=== PATIENT | female | born 2000 | race Caucasian/White ===

== ENCOUNTER 2020-05-25 13:08 | Emergency (ER) | payer OTHER, SELFPAY ==
--- NOTE | 2020-05-25 13:24 | ED.URI ---
HPI - URI/Sore Throat General Chief Complaint: Upper Respiratory Infection Stated Complaint: Fever,Cough,sore Throat Time Seen by Provider: 05/25/20 13:24 Source: patient and RN notes reviewed Mode of arrival: ambulatory Limitations: no limitations History of Present Illness HPI Narrative: 20-year-old female presents to the [facility] with complaints of sinus pressure, sore throat, congestion, cough and fever that has improved however is lingering for the last 4 days. States I really need to be tested for COVID. Reports that I think I lost my case this morning Denies fevers, chest pain, shortness of breath. No cough. Related Data Home Medications Medication Instructions Recorded Confirmed No Home Medications 05/25/20 05/25/20 Allergies Allergy/AdvReac Type Severity Reaction Status Date / Time No Known Allergies Allergy Verified 05/25/20 13:21 Review of Systems Review of Systems: Narrative: CONSTITUTIONAL: Denies fever, chills, or sweats. EYES: Denies visual changes, redness, or discharge. ENT: Reports rhinorrhea, congestion, sore throat, or otalgia. CARDIOVASCULAR: Denies chest pain, palpitations, or edema. RESPIRATORY: Denies cough or dyspnea. GASTROINTESTINAL: Denies abdominal pain, nausea, vomiting, or diarrhea. GENITOURINARY: Denies dysuria or hematuria. SKIN: Denies rash or itching. MUSCULOSKELETAL: Denies back pain, joint pain, or myalgia. NEUROLOGIC: Denies headache, numbness, or weakness. PSYCHIATRIC: Denies anxiety or depression. All other systems reviewed are negative, except as documented in HPI. PMFSH Comments At the time of my signature, I reviewed and agree with the nursing past medical, surgical, social, and family history. There is no relevant family history pertinent to the patient complaint. Exam Narrative: Exam Narrative: GENERAL: This is a well-nourished, well-developed patient, in no apparent distress. Obese HEAD: normocephalic, atraumatic. EYES: PERRL. Sclera clear/white. Vision is grossly intact. EARS: External ears normal, auditory canals clear and without drainage, TMs normal without perforation. Hearing grossly intact. NOSE: External nose normal with no obvious nasal discharge, nares without redness, no rhinorrhea. THROAT: Mucous membranes moist, posterior pharynx clear. NECK: Neck supple, non-tender without lymphadenopathy, masses or thyromegaly. CARDIOVASCULAR: Regular rate and rhythm without murmurs, gallops, or rubs. RESPIRATORY: Clear to auscultation. Breath sounds equal bilaterally. No wheezes, rales, or rhonchi. NEURO: awake, alert, and oriented to person, place and time. There were no obvious focal neurologic abnormalities. EXTREMITIES: No joint tenderness, effusion, or edema noted. No calf tenderness. Negative Homans sign bilaterally. BACK: Nontender without deformity. Course Vital Signs Vital signs: Vital Signs Temperature 97.5 F L 05/25/20 13:30 Pulse Rate 74 05/25/20 13:30 Respiratory Rate 18 05/25/20 13:30 Blood Pressure 137/81 05/25/20 13:30 Pulse Oximetry 96 05/25/20 13:30 Temperature 97.5 F L 05/25/20 13:30 Pulse Rate 74 05/25/20 13:30 Respiratory Rate 18 05/25/20 13:30 Blood Pressure 137/81 05/25/20 13:30 Pulse Oximetry 96 05/25/20 13:30 Reviewed MDM - URI/Sore Throat MDM Narrative Medical decision making narrative: Discharge instructions reviewed with patient, as well as provided in writing per nursing staff. The instructions also include specific and strict return/GO TO THE ER as well as f/u information. All questions have been answered, and the patient deny any further questions with discharge and discharge plan. Differential Diagnosis Differential diagnosis: Likely upper respiratory infection, sinusitis, viral infection, bronchitis and other (COVID-19) Lab Data Labs: Lab Results 05/25/20 Range/Units 13:40 SARS-CoV-2 RNA (RT-PCR) Pending Reviewed, patient only having symptoms x3 days sent to PCR waiting
[2020-05-25 13:30] VITALS: BP 137/81; PULSE 74; RESP 18; TEMP 36.4; O2SAT 96
[2020-05-26 13:22] LABS: SARS-CoV-2 RNA PCR Negative
== END 2020-05-25 13:41 | disposition home or self-care (01) ==
PROVIDERS: Emergency Provider Nurse Practitioner
DX: B34.9 Viral infection, unspecified (principal); J06.9 Acute upper respiratory infection, unspecified; Z20.822 Contact with and (suspected) exposure to COVID-19
CPT/HCPCS: 99203; C9803; G0463; U0003; U0005

== ENCOUNTER 2022-01-25 13:55 | Outpatient (CLI) | payer OTHER, SELFPAY ==
[2022-01-25 18:49] LABS: Basophils Percent Auto 0.6 % (0.2-1.2); Eosinophils Absolute Auto 0.1 K/mm3 (0-0.3); Eosinophils Percent Auto 0.7 % (0-4.4); Hematocrit 41.2 % (37.0-47.0); Hemoglobin 12.7 g/dL (12.0-15.0); Immature Granulocyte Absolute 0.01 K/mm3 (0.00-0.031); Immature Granulocyte Percent A 0.1 % (0-0.5); Lymphocytes Absolute Auto 2.61 K/mm3 (0.9-3.2); Lymphocytes Percent Auto 36.4 % (18.3-44.2); Mean Corpuscular HGB Conc 30.8 g/dl (32-36); Mean Corpuscular Hemoglobin 27.2 pg (26-34); Mean Corpuscular Volume 88.2 fl (80-100); Monocytes Absolute Auto 0.6 K/mm3 (0.1-0.6); Monocytes Percent Auto 8.4 % (2.6-8.5); Neutrophils Absolute Auto 3.9 K/mm3 (1.3-6.7); Neutrophils Percent Auto 53.8 % (45.5-73.1); Platelet Count Result 232 k/mm3 (150-375); Red Blood Count 4.67 M/mm3 (4.2-5.4); Red Cell Distribution Width 17.1 % (11.5-14.5); White Blood Count 7.2 K/mm3 (4.5-10.0)
[2022-01-25 18:51] LABS: Alanine Aminotransferase 24 U/L (6-35); Albumin Level 4.1 g/dL (3.5-5.1); Alkaline Phosphatase 71 U/L (38-126); Anion Gap 8 mmol/L (8-16); Aspartate Amino Transferase 53 U/L (14-36); Bilirubin,Total 0.4 mg/dL (0.2-1.3); Blood Urea Nitrogen 12 mg/dL (7-17); Calcium 9.2 mg/dL (8.4-10.2); Carbon Dioxide 26 mmol/L (22-30); Chloride 105 mmol/L (98-107); Estimated Glomerular Filt Rate > 60; Glucose 89 mg/dL (65-110); Potassium 4.6 mmol/L (3.4-5.0); Sodium 139 mmol/L (137-145)
[2022-01-25 18:58] LABS: Beta HCG Quantitative < 2.39 mIU/ML
[2022-01-25 19:12] LABS: Thyroid Stimulating Hormone 0.961 uIU/mL (0.465-4.680)
[2022-01-25 20:45] LABS: Appearance Urine Clear (Clear); Bilirubin Urine Negative (Negative); Blood Urine Negative (Negative); Color Urine Yellow (Yellow); Glucose Urine UA Negative (Negative); Ketones Urine Trace mg/dL (Negative); Leukocyte Esterase Ur Negative LEU/UL (Negative); Nitrate Urine Negative (Negative); Protein Urine Negative (Negative); pH Urine 6.5 (5.0-9.0)
[2022-01-25 20:50] LABS: Add Urine Microscopic? YES; Bacteria Urine Trace /hpf; Mucus Urine Rare /lpf; RBC Urine 0-2 /hpf (0-2); Squamous Epithelial Cell Urine Few /hpf (Few); WBC Urine 0-3 /hpf
== END 2022-01-25 13:56 | disposition home or self-care (01) ==
LOC: ANHGOSHLAB 13:57
PROVIDERS: PCP Internal Medicine; Visit Provider Clinical Nurse Specialist
DX: R35.0 Frequency of micturition (principal); Z13.228 Encounter for screening for other metabolic disorders; F41.9 Anxiety disorder, unspecified; N92.6 Irregular menstruation, unspecified
CPT/HCPCS: 36415; 80053; 81001; 84443; 84702; 85025

== ENCOUNTER 2022-03-29 12:36 | Outpatient (RCR) | payer OTHER, SELFPAY ==
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
--- NOTE | 2022-04-30 10:18 | PCPTNOTE ---
Patient called and canceled appointment on 04/16/22 due to another appointment.
--- NOTE | 2022-04-30 10:18 | PCPTNOTE ---
Patient called and canceled appointment on 04/30/22 due to illness.
--- NOTE | 2022-05-28 08:21 | PTOPDC ---
Assessment and note entered by Naida Walker DPT Evaluation Information Assessment Status Discharge - Pt Not Present Subjective Information Assessment PT Clinical Summary Pt has not been present in therapy since evaluation on 03/29/22. She will be discharged and need a new script to begin therapy in the future. Plan of Care Interventions PT Services Indicated Treatment Frequency and Duration
== END 2022-05-28 11:05 | disposition home or self-care (01) ==
LOC: ANHGOSHPT 12:36
PROVIDERS: PCP Internal Medicine; Visit Provider Nurse Practitioner
DX: R35.0 Frequency of micturition (principal)
CPT/HCPCS: 97110; 97161; 99199

== ENCOUNTER 2022-09-06 12:40 | Outpatient (CLI) | payer OTHER, SELFPAY ==
[2022-09-06 19:19] LABS: Basophils Absolute Auto 0.1 K/mm3 (0.0-0.1); Basophils Percent Auto 0.9 % (0.2-1.2); Eosinophils Absolute Auto 0.1 K/mm3 (0-0.3); Eosinophils Percent Auto 1.9 % (0-4.4); Hematocrit 42.6 % (37.0-47.0); Hemoglobin 13.8 g/dL (12.0-15.0); Immature Granulocyte Absolute 0.01 K/mm3 (0.00-0.031); Immature Granulocyte Percent A 0.2 % (0-0.5); Lymphocytes Percent Auto 45.9 % (18.3-44.2); Mean Corpuscular HGB Conc 32.4 g/dl (32-36); Mean Corpuscular Hemoglobin 29.6 pg (26-34); Mean Corpuscular Volume 91.4 fl (80-100); Mean Platelet Volume 10.1 fl (7.4-10.4); Monocytes Absolute Auto 0.5 K/mm3 (0.1-0.6); Neutrophils Absolute Auto 2.4 K/mm3 (1.3-6.7); Neutrophils Percent Auto 43.1 % (45.5-73.1); Platelet Count Result 167 k/mm3 (150-375); Red Blood Count 4.66 M/mm3 (4.2-5.4); Red Cell Distribution Width 14.2 % (11.5-14.5); White Blood Count 5.7 K/mm3 (4.5-10.0)
[2022-09-06 19:57] LABS: Alanine Aminotransferase 19 U/L (6-35); Albumin Level 4.2 g/dL (3.5-5.1); Alkaline Phosphatase 63 U/L (38-126); Anion Gap 5 mmol/L (8-16); Aspartate Amino Transferase 35 U/L (14-36); Bilirubin,Total 0.5 mg/dL (0.2-1.3); Blood Urea Nitrogen 15 mg/dL (7-17); Calcium 8.9 mg/dL (8.4-10.2); Carbon Dioxide 31 mmol/L (22-30); Chloride 105 mmol/L (98-107); Estimated Glomerular Filt Rate > 60; Glucose 85 mg/dL (65-110); Potassium 4.5 mmol/L (3.4-5.0); Sodium 141 mmol/L (137-145)
[2022-09-06 20:24] LABS: HIV 1/2 Ab P24 Ag Result Negative (Negative)
[2022-09-08 07:12] LABS: Rapid Plasma Reagin Non-Reactive (NonReactive)
[2022-09-10 06:47] LABS: Herpes Simplex Type 1 DNA PCR NOT DETECTED; Herpes Simplex Type 2 DNA PCR NOT DETECTED
== END 2022-09-06 12:41 | disposition home or self-care (01) ==
LOC: ANHGOSHLAB 12:41
PROVIDERS: PCP Internal Medicine; Visit Provider Clinical Nurse Specialist
DX: Z11.3 Encounter for screening for infections with a predominantly sexual mode of transmission (principal); R50.9 Fever, unspecified
CPT/HCPCS: 36415; 80053; 85025; 86592; 86703; 87491; 87529; 87591; G0432

== ENCOUNTER 2023-01-08 10:45 | Emergency (ER) | payer OTHER, SELFPAY ==
--- NOTE | ~2023-01-08 | US_ITS ---
EXAMINATION: US OB <=14 wk fetus w TV DATE: 01/08/2023 12:46 INDICATION: Pelvic pain during first trimester TECHNIQUE: Real-time pelvic transabdominal and transvaginal ultrasound was performed. COMPARISON: None. FINDINGS: The uterus measures 7.2 x 4.1 x 5.3 cm. There is an intrauterine gestational sac. A yolk sa c is identified. heart motion is identified measuring 121 beats per minute (bpm) by M-mode Dopp ler. The crown rump length measures 3 mm, which correlates with an estimated gestational age of 6 weeks and 0 day(s) (+/-) 4 day(s). The left ovary is not visualized however no left adnexal abnormality is seen. The right ovary measure s 3.9 x 2.1 x 3.3 cm. There is normal vascular flow in the right ovary. There is no free fluid in the pelvis. IMPRESSION: 1. Live intrauterine with an estimated gestational age of 6 weeks and 0 day(s) (+/-) 4 day( s) and an estimated delivery date of 09/03/2023. Reviewed, dictated and finalized at location F. IMPRESSION: 1. Live intrauterine with an estimated gestational age of 6 weeks and 0 day(s) (+/-) 4 day(s) and an estimated delivery date of 09/03/2023.
[2023-01-08 10:45] VITALS: BP 140/76; PULSE 73; RESP 16; TEMP 36.8; O2SAT 98
[2023-01-08 11:55] LABS: Basophils Absolute Auto 0.1 K/mm3 (0.0-0.1); Basophils Percent Auto 0.5 % (0.2-1.2); Eosinophils Absolute Auto 0.2 K/mm3 (0-0.3); Eosinophils Percent Auto 2.4 % (0-4.4); Hematocrit 44.4 % (37.0-47.0); Hemoglobin 14.2 g/dL (12.0-15.0); Immature Granulocyte Absolute 0.05 K/mm3 (0.00-0.031); Immature Granulocyte Percent A 0.5 % (0-0.5); Lymphocytes Absolute Auto 1.91 K/mm3 (0.9-3.2); Lymphocytes Percent Auto 19.4 % (18.3-44.2); Mean Corpuscular Hemoglobin 29.6 pg (26-34); Mean Corpuscular Volume 92.7 fl (80-100); Mean Platelet Volume 9.3 fl (7.4-10.4); Monocytes Absolute Auto 0.8 K/mm3 (0.1-0.6); Monocytes Percent Auto 7.9 % (2.6-8.5); Neutrophils Absolute Auto 6.8 K/mm3 (1.3-6.7); Neutrophils Percent Auto 69.3 % (45.5-73.1); Platelet Count Result 202 k/mm3 (150-375); Red Blood Count 4.79 M/mm3 (4.2-5.4); Red Cell Distribution Width 13.8 % (11.5-14.5); White Blood Count 9.8 K/mm3 (4.5-10.0)
[2023-01-08 11:58] LABS: Appearance Urine Turbid (Clear); Bacteria Urine None Seen /hpf; Bilirubin Urine Negative (Negative); Blood Urine Negative (Negative); Color Urine Yellow (Yellow); Glucose Urine UA Negative (Negative); Ketones Urine 1+ mg/dL (Negative); Leukocyte Esterase Ur Negative LEU/UL (Negative); Nitrate Urine Negative (Negative); Non Pathogenic Casts 0-2; Protein Urine Negative (Negative); RBC Urine 0-2 /hpf (0-2); Specific Grav Ur 1.021 (1.001-1.035); Squamous Epithelial Cell Urine Few /hpf (Few); WBC Urine 0-5 /hpf
--- NOTE | 2023-01-08 12:00 | ED.ABDPAIN ---
HPI - Abdominal Pain General Chief Complaint: Abdominal Pain Stated Complaint: abd pain/ 7 weeks Time Seen by Provider: 01/08/23 11:32 Source: patient Mode of arrival: ambulatory Limitations: no limitations History of Present Illness HPI narrative: Patient is a 22-year-old female who presents to the ED with report of lower abdominal pain. Patient reports she is currently around 7 weeks gestation based on LNMP of 11/20. This makes her . Patient reports having persistent lower abdominal cramping since around 5 PM last night. Pain seems to extend across lower abdomen into her lower back. She took Tylenol this morning without improvement. Patient is scheduled to see someone with [facility] [place] in the next 2 weeks for her first OB appointment. She has not had an ultrasound yet. Denies any vaginal bleeding. Reports some nausea, denies vomiting, dysuria, hematuria. Denies fever. Related Data Home Medications Medication Instructions Recorded Confirmed multivitamin with minerals 1 tablet PO DAILY 07/16/21 10/21/22 (Hair,Skin and Nails tablet) Allergies Allergy/AdvReac Type Severity Reaction Status Date / Time amoxicillin [From Augmentin] AdvReac Mild Rash Verified 01/08/23 10:47 clavulanic acid AdvReac Mild Rash Verified 01/08/23 10:47 [From Augmentin] Review of Systems Review of Systems: CONSTITUTIONAL: Denies fever, chills, or sweats. CARDIOVASCULAR: Denies chest pain. RESPIRATORY: Denies dyspnea. GASTROINTESTINAL: See HPI. GENITOURINARY: Denies vaginal bleeding, dysuria, or hematuria. NEUROLOGIC: Denies headache, numbness, or weakness. All systems reviewed & are unremarkable except as noted in HPI and below PMFSH Past Medical History Medical History Anxiety Fatigue Fever of unknown origin (FUO) Hospital discharge follow-up Rash and nonspecific skin eruption Screening for lipoid disorders Screening for metabolic disorder Screening for STD (sexually transmitted disease) Sore throat Urinary frequency Urinary tract infection symptoms Vaccination not carried out because of acute illness Vaginal itching Yeast infection Surgical History Surgical History History of hip replacement Family History Family History Grandparent Diabetes mellitus Hypertension Social History Social History Social History: Caffeine- rarely Smoking status: Never smoker Second hand tobacco smoke exposure: No Alcohol intake: never Substance use: never Substance use type: does not use Lack of Transportation: No Lack of Food: Never True Concerned About Future Housing: No Difficulty Paying Gas/Electric Bills: No Difficulty Paying for Meds: No Currently Unemployed: No Education: High School Diploma/GED Difficulty w/ Childcare or Family Care: No Living arrangements: with family Exam Narrative: GENERAL: Well appearing, obese with BMI of 34.5, non-toxic, in no acute distress. HEAD: Normocephalic, atraumatic. NECK: Supple. No adenopathy, no masses. RESPIRATORY: Airway patent, respirations nonlabored. Clear to auscultation bilaterally, no rales, rhonchi, wheezing. CARDIOVASCULAR: Regular rate and rhythm without murmurs, rubs, or gallops. Radial pulses 2+ and equal bilaterally. ABDOMINAL: Soft, mild tenderness across lower abdomen, worst in suprapubic region, nondistended, no hepatosplenomegaly. Normoactive BS. MUSCULOSKELETAL: Moves all extremities. Strength/ROM intact without gross deformities. SKIN: Warm, dry, normal color. No rashes. NEURO: A&O X3. Speech clear. Cranial nerves II-XII grossly intact. Steady gait. No ataxic movements. PSYCHIATRIC: Appropriate mood and affect. Normal interaction. Course Vital Signs Shaye
[2023-01-08 12:05] LABS: Add Urine Microscopic? YES
[2023-01-08 12:06] LABS: Alanine Aminotransferase 18 U/L (6-35); Albumin Level 4.3 g/dL (3.5-5.1); Alkaline Phosphatase 61 U/L (38-126); Anion Gap 9 mmol/L (8-16); Aspartate Amino Transferase 26 U/L (14-36); Bilirubin,Total 0.7 mg/dL (0.2-1.3); Blood Urea Nitrogen 8 mg/dL (7-17); Calcium 9.1 mg/dL (8.4-10.2); Carbon Dioxide 24 mmol/L (22-30); Chloride 102 mmol/L (98-107); Estimated CRCL calculation 130 ml/min; Estimated Glomerular Filt Rate > 60; Glucose 95 mg/dL (65-110); Lipase 58 U/L (23-300); Potassium 4.2 mmol/L (3.4-5.0); Sodium 135 mmol/L (137-145)
[2023-01-08 13:18] VITALS: BP 124/72; PULSE 72; RESP 18; O2SAT 98
== END 2023-01-08 13:18 | disposition home or self-care (01) ==
PROVIDERS: Emergency Provider Physician Assistant; PCP Internal Medicine
DX: O26.891 Other specified pregnancy related conditions, first trimester (principal); R10.32 Left lower quadrant pain; R10.31 Right lower quadrant pain; O99.341 Other mental disorders complicating pregnancy, first trimester; F41.9 Anxiety disorder, unspecified; Z96.649 Presence of unspecified artificial hip joint; Z3A.01 Less than 8 weeks gestation of pregnancy
CPT/HCPCS: 36415; 76801; 76817; 80053; 81001; 83690; 84702; 85025; 99284

== ENCOUNTER 2023-01-09 15:15 | Emergency (ER) | payer OTHER, SELFPAY ==
[2023-01-09 15:41] VITALS: BP 152/62; PULSE 83; RESP 20; TEMP 36.7; O2SAT 100
--- NOTE | 2023-01-09 15:47 | PC.NURSE ---
patient choose to leave without being seen today
== END 2023-01-09 15:47 | disposition left against medical advice (07) ==
LOC: ANHED 16:11
PROVIDERS: PCP Internal Medicine
DX: R19.7 Diarrhea, unspecified (principal)
CPT/HCPCS: 99199

== ENCOUNTER 2023-06-26 16:54 | Observation (INO) | payer OTHER, SELFPAY ==
[2023-06-26] VITALS (8 sets, daily range): BP systolic 122–149; BP diastolic 60–89; PULSE 64–92; RESP 18; TEMP 37.4; BMI 37.3
--- NOTE | 2023-06-26 17:30 | OBADM ---
This patient, Stephenie Hernandez, admitted to the OB room 115 for observation. Patient/family oriented to hospital policies and general routines including ID bracelet, bed and alarms, visiting hours, pain management, procedures, bathroom and other care routines, personal items, smoking policy, room service/diet, and visiting hours. Patient/Family are encouraged to report perceived risks to care and to ask questions if they do not understand what they are told or what they should do.
[2023-06-26 18:55] LABS: Basophils Percent Auto 0.2 % (0.2-1.2); Eosinophils Percent Auto 0.4 % (0-4.4); Hematocrit 35.8 % (37.0-47.0); Hemoglobin 11.8 g/dL (12.0-15.0); Immature Granulocyte Absolute 0.04 K/mm3 (0.00-0.031); Immature Granulocyte Percent A 0.4 % (0-0.5); Lymphocytes Absolute Auto 2.42 K/mm3 (0.9-3.2); Mean Corpuscular Hemoglobin 30.8 pg (26-34); Mean Corpuscular Volume 93.5 fl (80-100); Mean Platelet Volume 8.9 fl (7.4-10.4); Monocytes Absolute Auto 0.5 K/mm3 (0.1-0.6); Monocytes Percent Auto 5.9 % (2.6-8.5); Neutrophils Absolute Auto 5.9 K/mm3 (1.3-6.7); Neutrophils Percent Auto 66.1 % (45.5-73.1); Platelet Count Result 180 k/mm3 (150-375); Red Blood Count 3.83 M/mm3 (4.2-5.4); Red Cell Distribution Width 13.3 % (11.5-14.5)
[2023-06-26 19:00] LABS: Appearance Urine Cloudy (Clear); Bacteria Urine Rare /hpf; Bilirubin Urine Negative (Negative); Blood Urine Negative (Negative); Color Urine Yellow (Yellow); Glucose Urine UA Negative (Negative); Ketones Urine 4+ mg/dL (Negative); Leukocyte Esterase Ur Negative LEU/UL (Negative); Nitrate Urine Negative (Negative); Non Pathogenic Casts 0-2; Protein Urine Negative (Negative); RBC Urine 0-2 /hpf (0-2); Specific Grav Ur 1.025 (1.001-1.035); Squamous Epithelial Cell Urine Moderate /hpf (Few); Urobilinogen Urine 0.2 mg/dL (<2.0)
[2023-06-26 19:01] LABS: Add Urine Microscopic? YES
[2023-06-26 19:02] LABS: Creatinine Urine 144.7 mg/dL; Total Protein Urine Random 8 mg/dL; Ur Ttl Prot Creatinine Ratio 0.06 mg/mg (0-0.20)
[2023-06-26 19:08] LABS: Alanine Aminotransferase 49 U/L (6-35); Albumin Level 3.7 g/dL (3.5-5.1); Alkaline Phosphatase 88 U/L (38-126); Amylase 76 U/L (30-110); Anion Gap 2 mmol/L (4-12); Aspartate Amino Transferase 32 U/L (14-36); Bilirubin,Total 0.5 mg/dL (0.2-1.3); Blood Urea Nitrogen 5 mg/dL (7-17); Calcium 8.9 mg/dL (8.4-10.2); Carbon Dioxide 25 mmol/L (22-30); Chloride 106 mmol/L (98-107); Estimated CRCL calculation 182 ml/min; Estimated Glomerular Filt Rate > 60; Glucose 77 mg/dL (65-110); Lipase 57 U/L (23-300); Potassium 4.1 mmol/L (3.4-5.0); Sodium 133 mmol/L (137-145); Uric Acid 2.9 mg/dL (2.5-7.5)
[2023-06-26] MEDS: DEXTROSE 5%/LACTATED RINGERS 1,000 ML 999 ML IV CONT (19:55)
--- NOTE | 2023-06-27 15:21 | PM.OBTRLD ---
OB - Triage/Final Diagnosis Visit Information Date of evaluation: 06/26/23 Reason for evaluation: other (abdominal pain) Comments/Additional reasons for admission: I have assessed the risk for this patient, Stephenie Hernandez, and determined that she would benefit from observation care. Evaluation Laboratory results: Laboratory Tests 06/26/23 06/26/23 18:44 18:46 WBC 9.0 RBC 3.83 L Hgb 11.8 L Hct 35.8 L MCV 93.5 MCH 30.8 MCHC 33.0 RDW 13.3 Plt Count 180 MPV 8.9 Immature Gran % (Auto) 0.4 Neut % (Auto) 66.1 Lymph % (Auto) 27.0 [place] % (Auto) 5.9 Eos % (Auto) 0.4 Baso % (Auto) 0.2 Lymph # (Auto) 2.42 [place] # (Auto) 0.5 Eos # (Auto) 0.0 Baso # (Auto) 0.0 Abs Immat Gran (auto) 0.04 H Absolute Neuts (auto) 5.9 Absolute Nucleated RBC 0.000 Nucleated RBC % 0.0 Sodium 133 L Potassium 4.1 Chloride 106 Carbon Dioxide 25 Anion Gap 2 L BUN 5 L Creatinine 0.50 L Estim Creat Clear Calc 182 Estimated GFR > 60 Glucose 77 Uric Acid 2.9 Calcium 8.9 Total Bilirubin 0.5 AST 32 ALT 49 H Alkaline Phosphatase 88 Total Protein 7.0 Albumin 3.7 Amylase 76 Lipase 57 Urine Color Yellow Urine Appearance Cloudy H Urine pH 6.0 Ur Specific [place] 1.025 Urine Protein Negative Urine Glucose (UA) Negative Urine Ketones 4+ H Ur Blood (Man) Negative Urine Nitrate Negative Urine Bilirubin Negative Urine Urobilinogen 0.2 Leukocyte Esterase Rfl Negative Urine RBC 0-2 Urine WBC 6-10 H Ur Squamous Epith Cells Moderate Urine Bacteria Rare Urine Casts 0-2 U Random Total Protein 8 Urine Creatinine 144.7 Protein/Creat Ratio 2 0.06 Vital signs: Vital Signs - 24 hr 06/26/23 17:17 06/26/23 17:30 06/26/23 17:45 Temperature Pulse Rate 87 92 80 Respiratory Rate Blood Pressure 149/89 H 140/88 148/80 H Oxygen Delivery 06/26/23 18:16 06/26/23 18:30 06/26/23 19:35 Temperature Pulse Rate 64 68 84 Respiratory Rate Blood Pressure 127/63 132/60 136/72 Oxygen Delivery 06/26/23 19:45 06/26/23 17:30 06/26/23 17:30 Temperature 37.4 C Pulse Rate 85 83 Respiratory Rate 18 Blood Pressure 122/63 140/88 Oxygen Delivery Room Air 06/26/23 17:35 Temperature Pulse Rate 92 Respiratory Rate Blood Pressure 140/88 Oxygen Delivery
== END 2023-06-26 21:02 | disposition home or self-care (01) ==
PROVIDERS: Advanced Practice Midwife; Admitting Provider Obstetrics & Gynecology; PCP Internal Medicine; Visit Provider Obstetrics & Gynecology
DX: O26.893 Other specified pregnancy related conditions, third trimester (principal); R10.9 Unspecified abdominal pain; Z3A.31 31 weeks gestation of pregnancy
CPT/HCPCS: 36415; 80053; 81001; 82150; 82570; 83690; 84156; 84550; 85025; 87086; 87088; 96360; G0378; G0379; J7121

== ENCOUNTER 2023-08-09 13:01 | Inpatient (IN) | payer OTHER, SELFPAY ==
[2023-08-09] VITALS (9 sets, daily range): BP systolic 123–144; BP diastolic 66–104; PULSE 68–115; TEMP 36.4–36.8; BMI 37.6
[2023-08-09 12:39] LABS: Basophils Percent Auto 0.4 % (0.2-1.2); Eosinophils Absolute Auto 0.1 K/mm3 (0-0.3); Eosinophils Percent Auto 0.7 % (0-4.4); Hematocrit 36.1 % (37.0-47.0); Hemoglobin 11.8 g/dL (12.0-15.0); Immature Granulocyte Absolute 0.04 K/mm3 (0.00-0.031); Immature Granulocyte Percent A 0.5 % (0-0.5); Lymphocytes Absolute Auto 2.11 K/mm3 (0.9-3.2); Lymphocytes Percent Auto 27.7 % (18.3-44.2); Mean Corpuscular HGB Conc 32.7 g/dl (32-36); Mean Corpuscular Hemoglobin 29.2 pg (26-34); Mean Corpuscular Volume 89.4 fl (80-100); Mean Platelet Volume 9.4 fl (7.4-10.4); Monocytes Absolute Auto 0.4 K/mm3 (0.1-0.6); Monocytes Percent Auto 4.6 % (2.6-8.5); Neutrophils Percent Auto 66.1 % (45.5-73.1); Platelet Count Result 175 k/mm3 (150-375); Red Blood Count 4.04 M/mm3 (4.2-5.4); Red Cell Distribution Width 12.6 % (11.5-14.5); White Blood Count 7.6 K/mm3 (4.5-10.0)
[2023-08-09 12:43] LABS: Appearance Urine Clear (Clear); Bilirubin Urine Negative (Negative); Blood Urine Negative (Negative); Color Urine Yellow (Yellow); Glucose Urine UA Negative (Negative); Ketones Urine 3+ mg/dL (Negative); Leukocyte Esterase Ur Negative LEU/UL (Negative); Nitrate Urine Negative (Negative); Protein Urine Negative (Negative); Specific Grav Ur 1.016 (1.001-1.035)
[2023-08-09 12:46] LABS: Add Urine Microscopic? NO
[2023-08-09 12:49] LABS: Creatinine Urine 79.6 mg/dL; Total Protein Urine Random 10 mg/dL; Ur Ttl Prot Creatinine Ratio 0.13 mg/mg (0-0.20)
[2023-08-09 12:52] LABS: Alanine Aminotransferase 61 U/L (6-35); Albumin Level 3.7 g/dL (3.5-5.1); Alkaline Phosphatase 107 U/L (38-126); Anion Gap 5 mmol/L (4-12); Aspartate Amino Transferase 44 U/L (14-36); Bilirubin,Total 0.7 mg/dL (0.2-1.3); Blood Urea Nitrogen 8 mg/dL (7-17); Calcium 8.9 mg/dL (8.4-10.2); Carbon Dioxide 22 mmol/L (22-30); Chloride 108 mmol/L (98-107); Estimated Glomerular Filt Rate > 60; Glucose 95 mg/dL (65-110); Potassium 3.9 mmol/L (3.4-5.0); Sodium 135 mmol/L (137-145); Uric Acid 3.4 mg/dL (2.5-7.5)
--- NOTE | 2023-08-09 14:37 | WPDANESEPP ---
Anes - Eval Pre Procedure Procedure: LABOR EPIDURAL Date/Time: 08/09/23 14:37 Surgeon: Roberto Preop Diagnosis: pain during labor Pre Op Diagnosis: PIH Evaluation Patient Data Age: 23 Gender: F Height: Weight: Last Vital Signs Pulse 115 H 08/09/23 13:00 BP 128/68 08/09/23 13:00 Allergies Allergy/AdvReac Type Severity Reaction Status Date / Time amoxicillin [From Augmentin] AdvReac Mild Rash Verified 01/08/23 10:47 clavulanic acid AdvReac Mild Rash Verified 01/08/23 10:47 [From Augmentin] Home Medications Medication Instructions Recorded Confirmed Type omeprazole 20 mg capsule,delayed 20 mg PO DAILY 06/26/23 06/26/23 History release vit no.95-ferrous 1 tablet PO DAILY 06/26/23 06/26/23 History fumarate 28 mg-folic acid 800 mcg tablet () Laboratory Tests 08/09/23 12:32 WBC 7.6 K/mm3 (4.5-10.0) RBC 4.04 L M/mm3 (4.2-5.4) Hgb 11.8 L g/dL (12.0-15.0) Hct 36.1 L % (37.0-47.0) MCV 89.4 fl (80-100) MCH 29.2 pg (26-34) MCHC 32.7 g/dl (32-36) RDW 12.6 % (11.5-14.5) Plt Count 175 k/mm3 (150-375) MPV 9.4 fl (7.4-10.4) Immature Gran % (Auto) 0.5 % (0-0.5) Neut % (Auto) 66.1 % (45.5-73.1) Lymph % (Auto) 27.7 % (18.3-44.2) [place] % (Auto) 4.6 % (2.6-8.5) Eos % (Auto) 0.7 % (0-4.4) Baso % (Auto) 0.4 % (0.2-1.2) Lymph # (Auto) 2.11 K/mm3 (0.9-3.2) [place] # (Auto) 0.4 K/mm3 (0.1-0.6) Eos # (Auto) 0.1 K/mm3 (0-0.3) Baso # (Auto) 0.0 K/mm3 (0.0-0.1) Abs Immat Gran (auto) 0.04 H K/mm3 (0.00-0.031) Absolute Neuts (auto) 5.0 K/mm3 (1.3-6.7) Absolute Nucleated RBC 0.000 K/mm3 (0.0-0.012) Nucleated RBC % 0.0 % (0.0-0.2) Sodium 135 L mmol/L (137-145) Potassium 3.9 mmol/L (3.4-5.0) Chloride 108 H mmol/L (98-107) Carbon Dioxide 22 mmol/L (22-30) Anion Gap 5 mmol/L (4-12) BUN 8 mg/dL (7-17) Creatinine 0.60 L mg/dL (0.7-1.0) Estim Creat Clear Calc Not Reportable Estimated GFR > 60 (59 - ) Glucose 95 mg/dL (65-110) Uric Acid 3.4 mg/dL (2.5-7.5) Calcium 8.9 mg/dL (8.4-10.2) Total Bilirubin 0.7 mg/dL (0.2-1.3) AST 44 H U/L (14-36) ALT 61 H U/L (6-35) Alkaline Phosphatase 107 U/L (38-126) Total Protein 7.0 g/dL (6.3-8.2) Albumin 3.7 g/dL (3.5-5.1) Urine Color Yellow (Yellow) Urine Appearance Clear (Clear) Urine pH 8.0 (5.0-9.0) Ur Specific [place] 1.016 (1.001-1.035) Urine Protein Negative mg/dL (Negative) Urine Glucose (UA) Negative mg/dL (Negative) Urine Ketones 3+ H mg/dL (Negative) Ur Blood (Man) Negative (Negative) Urine Nitrate Negative (Negative) Urine Bilirubin Negative (Negative) Urine Urobilinogen 1.0 mg/dL (<2.0) Leukocyte Esterase Rfl Negative SELVIN/UL (Negative) U Random Total Protein 10 mg/dL Urine Creatinine 79.6 mg/dL Protein/Creat Ratio 2 0.13 mg/mg (0-0.20) Patient hx anesthesia problems: none Family hx anesthesia problems: none Results Review: All pre-operative results and documents have been reviewed as part of the pre-operative evaluation. [facility] Past Medical History Medical History (Updated 08/09/23 @ 14:38 by Gifty Archuleta CRNA) Anxiety Fatigue Fever of unknown origin (FUO) Hospital discharge follow-up IUP (intrauterine ), incidental Rash and nonspecific skin eruption Screening for lipoid disorders Screening for metabolic disorder Screening for STD (sexually transmitted disease) Sore throat Urinary frequency Urinary tract infection symptoms Vaccination not carried out because of acute illness Vaginal itching Yeast infection Surgical History Surgical History History of hip replacement Family History Family History (Reviewed 1
[2023-08-09] MEDS: miSOPROStol 25 MCG TABLET 50 MCG PO ×3 (14:43→22:29)
--- NOTE | 2023-08-09 15:21 | LDADM ---
This patient, Stephenie Hernandez, was admitted to Labor/Delivery/Recovery 108 on 08/09/23 at 13:01. Plans for labor, pain management and were discussed with patient. Patient/family oriented to hospital policies and general routines including ID bracelet, bed and alarms, visiting hours, pain management, procedures, bathroom and other care routines, personal items, smoking policy, room service/diet and guest tray routines, infant security routines, and visiting hours. Patient/Family are encouraged to report perceived risks to care and to ask questions if they do not understand what they are told or what they should do. See OBIX for further documentation.
[2023-08-09 15:33] LABS: HIV 1/2 Ab P24 Ag Result Negative (Negative)
[2023-08-09] MEDS: hydrOXYzine HCL 25 MG TABLET PO (21:02)
[2023-08-10] VITALS (177 sets, daily range): BP systolic 68–185; BP diastolic 27–159; PULSE 51–146; RESP 16–18; TEMP 36.6–36.9; O2SAT 82–100
[2023-08-10] MEDS: miSOPROStol 25 MCG TABLET 50 MCG PO ×3 (02:57→11:07)
--- NOTE | 2023-08-10 12:59 | PM.IMHP ---
H&P: HPI History of Present Illness Date/Time: 08/09/23 Chief Complaint: gestational hypertension Narrative: Patient is a 23 year old who presents with headache. She was seen in the office last week and had elevated blood pressures. Labwork at that time was normal. She reports a mild headache that has now improved. She denies vision changes, chest pain, dyspnea, RUQ pain, epigastric pain. Her has been otherwise complicated by right hip replacement as a teenager. She reports good movement, denies contractions, LOF, VB. Review of Systems Review of Systems: All systems reviewed & are unremarkable except as noted in HPI and below PMFSH Past Medical History Medical History Anxiety Fatigue Fever of unknown origin (FUO) Hospital discharge follow-up IUP (intrauterine ), incidental Rash and nonspecific skin eruption Screening for lipoid disorders Screening for metabolic disorder Screening for STD (sexually transmitted disease) Sore throat Urinary frequency Urinary tract infection symptoms Vaccination not carried out because of acute illness Vaginal itching Yeast infection Surgical History Surgical History History of hip replacement Family History Family History Grandparent Diabetes mellitus Hypertension Social History Social History Social History: Caffeine- rarely Smoking status: Never smoker Second hand tobacco smoke exposure: No Alcohol intake: never Substance use: never Substance use type: does not use Do You Feel Safe in your Home?: Yes Lack of Transportation: No Lack of Food: Never True Current Housing: I Have Housing Concerned About Future Housing: No Difficulty Paying Gas/Electric Bills: No Difficulty Paying for Meds: No Currently Unemployed: No Education: High School Diploma/GED Difficulty w/ Childcare or Family Care: No Living arrangements: with family Spiritual care concerns: No Meds Home Medications and Allergies Home Medications Medication Instructions Recorded Confirmed Type omeprazole 20 mg capsule,delayed 20 mg PO DAILY 06/26/23 08/09/23 History release vit no.95-ferrous 1 tablet PO DAILY 06/26/23 08/09/23 History fumarate 28 mg-folic acid 800 mcg tablet () Allergies Allergy/AdvReac Type Severity Reaction Status Date / Time amoxicillin [From Augmentin] AdvReac Mild Rash Verified 01/08/23 10:47 clavulanic acid AdvReac Mild Rash Verified 01/08/23 10:47 [From Augmentin] Vital Signs Vital Signs - 24 hr 08/09/23 13:00 08/09/23 15:12 08/09/23 15:31 Temperature Pulse Rate 115 H 85 78 Respiratory Rate Blood Pressure 128/68 137/80 139/84 Oxygen Delivery 08/09/23 16:02 08/09/23 17:09 08/09/23 21:59 Temperature 98.2 F Pulse Rate 88 85 Respiratory Rate Blood Pressure 123/104 H 131/66 Oxygen Delivery 08/09/23 22:16 08/10/23 00:50 08/10/23 01:07 Temperature 97.6 F Pulse Rate 68 90 72 Respiratory Rate Blood Pressure 137/71 138/71 120/52 L Oxygen Delivery 08/10/23 01:31 08/10/23 02:01 08/10/23 02:30 Temperature Pulse Rate 75 85 96 Respiratory Rate Blood Pressure 114/42 L 127/54 L 120/71 Oxygen Delivery 08/10/23 02:32 08/10/23 03:01 08/10/23 03:31 Temperature 98 F Pulse Rate 75 72 Respiratory Rate Blood Pressure 118/51 L 101/44 L Oxygen Delivery 08/10/23 04:01 08/10/23 04:30 08/10/23 05:00 Temperature Pulse Rate 75 73 59 L Respiratory Rate Blood Pressure 106/52 L 104/51 L 101/45 L Oxygen Delivery 08/10/23 05:31 08/10/23 06:01 08/10/23 06:31 Temperature Pulse Rate 71 69 55 L Respiratory Rate Blood Pressure 142/77 H 116/45 L 105/40 L Oxygen Delivery 08/10/23 07:01 08/10/23
[2023-08-10] MEDS: fentaNYL CITRATE INJ (*CRX) 100 MCG/2 ML VIAL IV PUSH ×2 (14:53→16:18)
[2023-08-10 16:23] LABS: Rapid Plasma Reagin Non-Reactive (NonReactive)
[2023-08-10] MEDS: LACTATED RINGERS 1,000 ML 125 ML IV CONT ×3 (16:30→19:45)
[2023-08-10] MEDS: ONDANSETRON INJ 4 MG/2 ML VIAL IV PUSH (17:23)
[2023-08-10] MEDS: PHENYLEPHRINE 1,000 MCG/10 ML SYRINGE 100 MCG IV PUSH ×2 (17:24→19:26)
[2023-08-10] MEDS: FAMOTIDINE 20 MG/2 ML VIAL IV PUSH (18:26)
[2023-08-10] MEDS: OXYTOCIN 30 UNITS/NS 500 ML 30 UNITS/500 ML BAG IV CONT (20:18)
[2023-08-11] VITALS (74 sets, daily range): BP systolic 69–162; BP diastolic 30–96; PULSE 30–153; RESP 16–20; TEMP 36.6–37.9; O2SAT 76–100
[2023-08-11] MEDS: ONDANSETRON INJ 4 MG/2 ML VIAL IV PUSH ×2 (00:11→19:23)
[2023-08-11] MEDS: SODIUM CHLORIDE 0.9% IV 300 ML 600 ML I-UTERINE (02:05)
[2023-08-11] MEDS: METOCLOPRAMIDE HCL INJ 10 MG/2 ML VIAL IV PUSH (02:16)
--- NOTE | 2023-08-11 03:04 | PM.OBPRVD ---
OB - Vaginal Delivery Note Procedure Delivery date: 08/11/23 Events: Gestational Hypertension Induction method: Per Misoprostol Protocol Delivery augmentation: Pitocin Delivery monitor: Internal FHT and Internal Uterine Route of delivery: Episiotomy description: None Laceration Description: None Specimen: No Quantitative Blood Loss (ml): 100 Anesthesia type: Epidural Disposition: Floor Complications: No immediate complications Narrative: See H&P and notes for details on patient's admission and labor. She progressed to complete cervical dilation and at the appropriate time began pushing. With adequate expulsive efforts by the mother, the baby's head was delivered without difficulty. Nuchal cord was not present. The baby's right shoulder was anterior and delivered under the pubic symphysis without difficulty. The posterior shoulder and the rest of the baby delivered without difficulty. The umbilical cord was doubly clamped and cut after 60 seconds of delayed cord clamping. Care of the infant was then assumed by the nursing staff. Baby Date of : 08/11/23 Time of : 02:52 Weeks of gestation at delivery: 37 Infant gender: Female presentation: vertex position: Left Occiput Anterior Placenta delivery description: Expressed Cord Vessel Description: 3 Vessels
[2023-08-11] MEDS: OXYTOCIN 30 UNITS/NS 500 ML 30 UNITS/500 ML BAG 125 UNITS IV CONT (03:29)
[2023-08-11] MEDS: ACETAMINOPHEN 325 MG TABLET 650 MG PO ×2 (03:35→09:39)
[2023-08-11] MEDS: IBUPROFEN 600 MG TABLET PO ×3 (05:30→19:20)
--- NOTE | 2023-08-11 05:59 | OBPPTRN ---
Patient transferred to post room #280 via wheelchair. Support person present. Oriented to unit, room, information board, rooming in, admission packet and security measures. Patient verbalizes understanding.
--- NOTE | 2023-08-11 07:39 | PM.OBPNVD ---
OB - PN: Subj Subjective Date/time seen: 08/11/23 07:39 Patient tolerating p.o. food and liquids. Patient has Reglan pump. It was occluded yesterday, after was reapplied it remained locked. no nausea or vomiting today. Patient has follow-up in 1 week. OB - PN: Obj Data Labs 08/09/23 12:32 08/09/23 12:32 Labs: Laboratory Results - last 24 hr 08/09/23 14:38 RPR Non-reactive OB - PN A/P Time Spent With Patient Time: Total time spent is greater than 50% in coordination of care (as documented) at patient's floor/unit and/or counseling patient:
--- NOTE | 2023-08-11 07:42 | PM.DS ---
DS: Admitting Diagnosis Discharge Date August 11, 2023 Admitting Diagnosis hyperemesis DS: Discharge Diagnosis Discharge Diagnosis (1) Hyperemesis: Code(s): R11.10 - Vomiting, unspecified Status: Acute DS: Summary Hospital Course Hospital Course: 23-year-old female, multiparous, hyperemesis gravidarum. Admitted 2 days. Treated with supportive care. Antiemetic pump reapplied. Thereafter the Nausea and vomiting resolved. discharged home. Follow up in 1 week. Time Spent with Patient Time attestation: Total time spent providing and/or coordinating discharge services: DS: Data Data Completed and Pending Pending studies at discharge: Pending at discharge 08/11/23 04:29 Surgical [PTH] Routine Labs on day of discharge: Labs from last 24 hours 08/09/23 14:38 RPR Non-reactive Discharge Plan Discharge Discharging Clinician: Chris Soto Patient Disposition: Home, Self-Care Activity: pelvic rest Diet: regular Patient Instructions: Antibiotic Form Stand Alone Forms: General Discharge Information Follow-up/Referrals: Chris Soto MD [Physician] - Discharge Medications: Continued omeprazole 20 mg capsule,delayed release(DR/EC) 20 mg PO DAILY PNV cmb#95-ferrous fumarate-FA [] 28 mg iron- 800 mcg Tablet 1 tablet PO DAILY Date of admission: 08/09/23 13:01 Primary Care Provider: Dylon Zepeda Admitting Provider: Mark Mejia Attending physician on admission: Mark Mejia Condition: Stable
[2023-08-11] MEDS: MULTIVIT/MIN/PREN/FOL AC/IRON TABLET 1 TAB PO (09:39)
[2023-08-11] MEDS: oxyCODONE/ACETAMINOPHEN (*CRX) 5-325 MG TABLET PO ×2 (10:32→16:51)
--- NOTE | 2023-08-11 14:13 | PC.NURSE ---
[id number] Introductions were made, then consulted with patient to assess needs related to . Discussed with mother her?plans to feed?her infant and the?experience so far. Mother shared that has not been painful and describes the feeding as tugging. Reviewed with parents signs of a good latch vs a poor latch and to look for any misshaping of the nipples. Reviewed with mother to call for assistance if she notices pain, misshaped nipples, difficulty waking to breastfeed or any question and concerns. Resources provided for inpatient with RN LC name written on the communication board to use with the call light to ask for assistance. Mother voiced understanding of information and will call if there is a request for assistance.
--- NOTE | 2023-08-11 17:23 | WPDANLDPN2 ---
Anes-Prog Note L&D Date/Time: 08/11/23 17:23 Comfortable throughout: labor and delivery Neuraxial method: epidural Epidural/Spinal procedure site: clean & non-tender Neuro status: Neuro function grossly intact. Cardiovascular status: normal Respiratory status: normal Airway patency: baseline Mental status: baseline Post-Op hydration status: other (evaluated pt for C/O frontal GRUBBS, pt has not hydrated. wrote for LR bolus and fioricet. not concerned that pt has PDPHA at this time. will reassess in the morning.) Vital Signs: Last Vital Signs Temp 36.7 C 08/11/23 12:46 Pulse 97 08/11/23 12:46 Resp 16 08/11/23 12:46 BP 115/58 L 08/11/23 12:46 Pulse Ox 98 08/11/23 12:46 O2 Del Method Room Air 08/09/23 15:13 Pain score (VAS): 7/10 GRUBBS frontal. Little sleep. Has only had 12-16 0z H2O today. encouraged hydration & sleep. Will give LR bolus 1L and fiorecet. will reassess in the morning. talked to DSL who did epidural placement he stated that it was an uncomplicated placement. I/O: Intake & Output 08/11/23 08/11/23 08/11/23 07:59 15:59 23:59 Intake Total 980 Output Total 100 Balance -100 980 Patient feedback: Patient satisfied with anesthetic care.
[2023-08-11] MEDS: LACTATED RINGERS 1,000 ML 999 ML (17:59)
[2023-08-11] MEDS: POLYSACCHARIDE IRON COMPLEX 150 MG CAPSULE PO (19:20)
[2023-08-11] MEDS: ACETAMINOPHEN/BUTALBITAL/CAFFEINE 325-50-40 MG TABLET (FIORICET) 1 TAB PO (19:21)
[2023-08-12] MEDS: ACETAMINOPHEN 325 MG TABLET 650 MG PO (04:39)
[2023-08-12 05:35] VITALS: BP 128/66; PULSE 86; RESP 18; TEMP 36.4; O2SAT 100
[2023-08-12 05:39] LABS: Hematocrit 34.4 % (37.0-47.0); Hemoglobin 10.9 g/dL (12.0-15.0)
--- NOTE | 2023-08-12 07:53 | WPDANLDPN2 ---
Anes-Prog Note L&D Date/Time: 08/12/23 07:53 Comfortable throughout: labor and delivery Neuraxial method: epidural Epidural/Spinal procedure site: clean & non-tender Neuro status: Neuro function grossly intact. Cardiovascular status: normal Respiratory status: normal Airway patency: baseline Mental status: baseline Post-Op hydration status: other (evaluated pt for C/O frontal GRUBBS, pt has not hydrated. wrote for LR bolus and fioricet. not concerned that pt has PDPHA at this time. will reassess in the morning.) Vital Signs: Last Vital Signs Temp 36.4 C 08/12/23 05:35 Pulse 86 08/12/23 05:35 Resp 18 08/12/23 05:35 BP 128/66 08/12/23 05:35 Pulse Ox 100 08/12/23 05:35 O2 Del Method Room Air 08/12/23 05:35 Pain score (VAS): 8/10 I/O: Intake & Output 08/11/23 08/11/23 08/12/23 15:59 23:59 07:59 Intake Total 980 1300 Output Total 1900 Balance 980 -600 Patient feedback: Patient satisfied with anesthetic care. Headache continues with no improvement. Pt requests epidural blood patch Other findings: Pt continues to have 7-8/10 headache (frontal and occipital)
[2023-08-12] MEDS: MULTIVIT/MIN/PREN/FOL AC/IRON TABLET 1 TAB PO (07:54)
[2023-08-12 08:45] VITALS: BP 128/77; PULSE 78; RESP 16; TEMP 37.1; O2SAT 99
[2023-08-12 09:20] VITALS: BP 137/72; PULSE 58; RESP 16; TEMP 36.8
--- NOTE | 2023-08-12 09:27 | WPDANESEBPP ---
Anes - Epidural Blood Patch PN Date/Time: 08/12/23 09:27 Consent: I have discussed with the patient/family/POA, the rationale of a lumbar epidural autologous blood patch for the treatment of post-dural puncture headache (spinal headache), including associated potential risks, benefits, complications and side effects. I have also discussed more conservative treatment options such as intravenous hydration, caffeine and non-prescription analgesics. The patient/family/POA, understand(s) and wish(es) to proceed with epidural autologous blood patch as treatment for the patient's post-dural puncture headache. Time-Out: A pre-procedural Time-Out was completed immediately before starting the procedure and confirmed: Patient Identification, Site, Procedure, Patient Position and the Availability of Requisite Equipment. Clinical Indications: headache 8/10 pain, mostly frontal and also occipital, worse with sitting and standing, eyes sensitive to light Epidural Insertion Note Patient position: sitting Skin prep: chlorhexidine Needle: 18 gauge Tuohy-Schliff, 7cm to EDS, 15cc blood drawn sterile from left arm, injected easily into EDS. Headache improved to 3/10. VSS. Technique: loss of resistance Skin anesthesia: lidocaine 1% Observations: tolerated well Complications: none
[2023-08-12] MEDS: ACETAMINOPHEN/BUTALBITAL/CAFFEINE 325-50-40 MG TABLET (FIORICET) 1 TAB PO ×4 (10:30→23:22)
--- NOTE | 2023-08-12 12:26 | PM.OBPNVD ---
OB - PN: Subj Subjective Date/time seen: 08/12/23 07:26 Interval history: Doing ok, spinal headache continues this morning. Anesthesia planning blood patch. Otherwise pain well controlled. Baby latching well. Tolerating general diet. OB - PN: Obj Data Labs 08/12/23 04:35 08/09/23 12:32 Labs: Laboratory Results - last 24 hr 08/12/23 04:35 Hgb 10.9 L Hct 34.4 L OB - PN A/P Assessment and Plan (1) Gestational hypertension: Code(s): O13.9 - Gestational [-induced] hypertension without significant proteinuria, unspecified trimester Status: Acute Plan day: 1 Plan: routine care Time Spent With Patient Time: Total time spent is greater than 50% in coordination of care (as documented) at patient's floor/unit and/or counseling patient: Review of Systems Review of Systems: All systems reviewed & are unremarkable except as noted in HPI and below Exam Const: General: comfortable and no acute distress Orientation/consciousness: patient oriented x3 Resp: Effort & Inspection: normal respiratory effort
[2023-08-12] MEDS: IBUPROFEN 600 MG TABLET PO ×2 (14:31→21:02)
[2023-08-12] MEDS: CYCLOBENZAPRINE HCL 10 MG TABLET PO (17:16)
[2023-08-12 20:34] VITALS: BP 109/57; PULSE 77; RESP 18; TEMP 37.2; O2SAT 98
[2023-08-13] MEDS: ACETAMINOPHEN/BUTALBITAL/CAFFEINE 325-50-40 MG TABLET (FIORICET) 1 TAB PO ×5 (04:14→21:06)
[2023-08-13] MEDS: IBUPROFEN 600 MG TABLET PO ×3 (05:34→21:06)
[2023-08-13 08:00] VITALS: BP 135/80; PULSE 71; RESP 18; TEMP 37.3; O2SAT 99
--- NOTE | 2023-08-13 08:28 | PM.OBDSVD ---
DS: Admitting Diagnosis Discharge Date 08/13/23 Admitting Diagnosis gestational hypertension DS: Discharge Diagnosis Discharge Diagnosis (1) Gestational hypertension: Code(s): O13.9 - Gestational [-induced] hypertension without significant proteinuria, unspecified trimester Status: Acute (2) (spontaneous vaginal delivery): Code(s): O80 - Encounter for full-term uncomplicated delivery Status: Acute (3) Spinal headache complicating labor and delivery: Code(s): O74.5 - Spinal and epidural anesthesia-induced headache during labor and delivery Status: Acute OB - DS: Summary OB Procedures : PIH Mgmt OB Procedures Intrapartum: Spontaneous Vag Delivery OB Procedures: : None Peripartum Data Laceration Description: None Episiotomy description: None Time Spent with Patient Time attestation: Total time spent providing and/or coordinating discharge services: DS: Data Data Completed and Pending Pending studies at discharge: Pending at discharge 08/11/23 04:29 Surgical [PTH] Routine Discharge Plan Discharge Attending physician on discharge: Mark Mejia Discharging Clinician: Mark Mejia Patient Disposition: Home, Self-Care Activity: may shower and pelvic rest Diet: as tolerated and regular Patient Instructions: Antibiotic Form Stand Alone Forms: General Discharge Information Follow-up/Referrals: Chris Soto MD [Physician] - ([address] Mejia) Discharge Medications: New docusate sodium 100 mg Capsule 100 mg PO BID PRN (Reason: Constipation) Qty: 60 0RF ibuprofen 600 mg Tablet 600 mg PO Q6H PRN (Reason: Cramping) Qty: 30 0RF Continued omeprazole 20 mg capsule,delayed release(DR/EC) 20 mg PO DAILY PNV cmb#95-ferrous fumarate-FA [] 28 mg iron- 800 mcg Tablet 1 tablet PO DAILY Date of admission: 08/09/23 13:01 Primary Care Provider: Dylon Zepeda Admitting Provider: Mark Mejia Attending physician on admission: Mark Mejia Condition: Stable
[2023-08-13] MEDS: MULTIVIT/MIN/PREN/FOL AC/IRON TABLET 1 TAB PO (08:46)
[2023-08-13] MEDS: DOCUSATE SODIUM 100 MG CAPSULE PO (08:56)
--- NOTE | 2023-08-13 09:08 | PC.NURSE ---
Patient was given the opportunity to view the discharge video Mother & Baby Care, The First Two Weeks and to ask questions. Patient declined viewing the video and has been given the mother/baby guide for home reference.
--- NOTE | 2023-08-13 10:02 | PM.OBPNVD ---
OB - PN: Subj Subjective Date/time seen: 08/13/23 10:02 Interval history: PPD#1 Headache only slightly improved, had some relief after blood patch though short lived Spinal headache, worse with sitting up and standing, relief when laying down Some improvement in neck pain with flexeril No vision changes, chest pain, dyspnea, RUQ pain or epigastric pain Pumping and direct OB - PN: Obj Data Labs 08/12/23 04:35 08/09/23 12:32 OB - PN A/P Assessment and Plan (1) Spinal headache complicating labor and delivery: Code(s): O74.5 - Spinal and epidural anesthesia-induced headache during labor and delivery Status: Acute Assessment and Plan: - some temporary relief following blood patch - anesthesia reassessed this morning, may try nasal lidocaine and/or repeat blood patch - low suspicion for preeclampsia related headache given normotensive blood pressures, lack of other symptoms, and quality of headache (worse with sitting up and improved with laying flat) - continue to monitor closely for resolution following anesthesia interventions (2) (spontaneous vaginal delivery): Code(s): O80 - Encounter for full-term uncomplicated delivery Status: Acute Assessment and Plan: - routine pp care (3) Gestational hypertension: Code(s): O13.9 - Gestational [-induced] hypertension without significant proteinuria, unspecified trimester Status: Acute Assessment and Plan: - asymptomatic aside from spinal headache - BP wnl - continue to monitor closely Plan day: 2 Plan: routine care Time Spent With Patient Time: Total time spent is greater than 50% in coordination of care (as documented) at patient's floor/unit and/or counseling patient: Review of Systems Review of Systems: All systems reviewed & are unremarkable except as noted in HPI and below Exam Const: General: comfortable and no acute distress Orientation/consciousness: patient oriented x3 Resp: Effort & Inspection: normal respiratory effort
--- NOTE | 2023-08-13 16:17 | WPDANLDPN2 ---
Anes-Prog Note L&D Date/Time: 08/13/23 16:17 Comfortable throughout: labor and delivery Neuraxial method: epidural Epidural/Spinal procedure site: clean & non-tender Neuro status: Neuro function grossly intact. Cardiovascular status: normal Respiratory status: normal Airway patency: baseline Mental status: baseline Post-Op hydration status: other (evaluated pt for C/O frontal GRUBBS, pt has not hydrated. wrote for LR bolus and fioricet. not concerned that pt has PDPHA at this time. will reassess in the morning.) Vital Signs: Last Vital Signs Temp 37.3 C 08/13/23 08:00 Pulse 71 08/13/23 08:00 Resp 18 08/13/23 08:00 BP 135/80 08/13/23 08:00 Pulse Ox 99 08/13/23 08:00 O2 Del Method Room Air 08/13/23 08:00 Pain score (VAS): 5/10 Post-procedural complaints: other (PDPH) Patient feedback: Patient satisfied with anesthetic care. patient reports headache persists after fioricet, motrin, and EBP. transnasal sphenopalintine block performed with 4% lidocaine and cotton tip applicator provided temporary relief for about 3 hours. cosyntropin 500 mcg ordered and administered. patient continues to report 5/10 headache pain. she is agreeable to finishing the cosyntropin infusion and reevalute how she feels after that. At this time it is not recommended that a second EBP be performed and she is agreeable to that.
--- NOTE | 2023-08-13 19:50 | WPDANLDPN2 ---
Anes-Prog Note L&D Date/Time: 08/13/23 19:50 Comfortable throughout: labor and delivery Neuraxial method: epidural Epidural/Spinal procedure site: clean & non-tender Neuro status: Neuro function grossly intact. Cardiovascular status: normal Respiratory status: normal Airway patency: baseline Mental status: baseline Post-Op hydration status: other (evaluated pt for C/O frontal GRUBBS, pt has not hydrated. wrote for LR bolus and fioricet. not concerned that pt has PDPHA at this time. will reassess in the morning.) Vital Signs: Last Vital Signs Temp 37.3 C 08/13/23 08:00 Pulse 71 08/13/23 08:00 Resp 18 08/13/23 08:00 BP 135/80 08/13/23 08:00 Pulse Ox 99 08/13/23 08:00 O2 Del Method Room Air 08/13/23 08:00 Pain score (VAS): 2/ reevalulated patient for headache, currently she is holding baby and her headache is mild. She feels better than she has in a couple days. She feels the best after Motrin doses but also gets relief from Fioricet. We discussed continuing to hydrate. Pt verbalized understanding. I/O: Intake & Output 08/13/23 08/13/23 08/13/23 07:59 15:59 23:59 Intake Total 542 Balance 542 Post-procedural complaints: other (PDPH) Patient feedback: Patient satisfied with anesthetic care.
[2023-08-13 20:00] VITALS: BP 106/53; PULSE 76; RESP 20; TEMP 37.2; O2SAT 98
[2023-08-13] MEDS: CYCLOBENZAPRINE HCL 10 MG TABLET PO (22:40)
[2023-08-13] MEDS: MAGNESIUM SULF 2 GM/WATER 50ML 2 GM/50 ML BAG IVPB (22:48)
[2023-08-13] MEDS: LACTATED RINGERS 1,000 ML 75 ML IV CONT (22:49)
[2023-08-14] MEDS: ACETAMINOPHEN/BUTALBITAL/CAFFEINE 325-50-40 MG TABLET (FIORICET) 1 TAB PO ×2 (04:35→10:42)
[2023-08-14] MEDS: CYCLOBENZAPRINE HCL 10 MG TABLET PO ×2 (04:35→10:42)
[2023-08-14] MEDS: IBUPROFEN 600 MG TABLET PO ×2 (04:35→10:42)
--- NOTE | 2023-08-14 04:58 | PC.NURSE ---
Upon introduction to patient, patient stated that despite all interventions over the past few days (blood patch, cosyntropin IV, fioricet, flexeril, and motrin) her headache is persisting. This RN was told that earlier in the day when the patient was receiving IV cosyntropin her IV infiltrated and the patient had stated she was feeling better at the time and didn't feel she would need to finish the dose. Anesthesia stated this was okay and advised to keep the remaining dose in case needed for later. When this RN spoke with the patient she stated her headache returned and she would like a new IV placed to finish the dose. Tessie RN from the nursery came up and placed new IV and this RN spoke with anesthesia who stated it would be okay to finish the cosyntropin dose and advise the patient to hydrate orally. 1999 - Elizabeth from anesthesia at the bedside. This RN, patient, and patient support person present. Anesthesia notified patient that she does not believe the headache is a spinal headache at this time and the patient needs to drink more water. This RN asked Elizabeth for an order for IV fluids to help the patient hydrate and Elizabeth stated that the patient has had enough IV fluids and needs to consume fluids orally. After Elizabeth left the room, the patient was tearful and stated that she felt confused, overwhelmed, and dismissed. This RN comforted the patient and told her that we would plan to finish the cosyntropin dose and drink two water pitchers and if her headache persisted this RN would notify Dr. Mejia. Patient no longer tearful but stated crying made her headache worse. Wandy RN from nursery spoke with the patient following this. 2154- Dr. Mejia contacted this RN for an update on the patient. Wandy from the nursery gave an update and received orders to continue the fioricet, restart the flexeril, and start a magnesium infusion of 2g over 1 hour along with completing the bag of LR. This RN started these interventions. Patient requested baby be sent to the nursery at this time so that she could rest. 463 - Magnesium infusion complete. Patient in bed resting. Patient stated that she had been sleeping and feels fine at this time. 1155- The bag of LR completed. This RN spoke with patient regarding pain. Patient stated that her headache was still persisting. This RN contacted Dr. Mejia and gave a condition update. Dr. Mejia stated that we are not to continue IV fluids and no new orders at this time. RN gave motrin, fioricet, and flexeril for the pain and left patient to rest.
[2023-08-14 06:50] VITALS: BP 145/80; PULSE 77; RESP 16; TEMP 36.7; O2SAT 100
[2023-08-14] MEDS: DOCUSATE SODIUM 100 MG CAPSULE PO (07:04)
[2023-08-14] MEDS: MULTIVIT/MIN/PREN/FOL AC/IRON TABLET 1 TAB PO (07:04)
--- NOTE | 2023-08-14 08:26 | PM.OBPNVD ---
OB - PN: Subj Subjective Date/time seen: 08/14/23 08:26 Interval history: PPD#3 Headache improved, minimal today s/p MgSO4 and fluids overnight. Trying caffeine this morning. Some improvement in neck pain with flexeril No vision changes, chest pain, dyspnea, RUQ pain or epigastric pain Pumping and direct OB - PN: Obj Data Labs 08/12/23 04:35 08/09/23 12:32 OB - PN A/P Assessment and Plan (1) Spinal headache complicating labor and delivery: Code(s): O74.5 - Spinal and epidural anesthesia-induced headache during labor and delivery Status: Acute Assessment and Plan: - some temporary relief following blood patch - improved this morning very minimal - low suspicion for preeclampsia related headache given normotensive blood pressures, lack of other symptoms, and quality of headache (worse with sitting up and improved with laying flat) - discussed conservative measures at home (2) (spontaneous vaginal delivery): Code(s): O80 - Encounter for full-term uncomplicated delivery Status: Acute Assessment and Plan: - routine pp care (3) Gestational hypertension: Code(s): O13.9 - Gestational [-induced] hypertension without significant proteinuria, unspecified trimester Status: Acute Assessment and Plan: - asymptomatic aside from spinal headache - BP wnl - continue to monitor closely Plan day: 3 Plan: routine care and discharge home Comments: - ok for no care bed if baby continues to need bili lights Time Spent With Patient Time: Total time spent is greater than 50% in coordination of care (as documented) at patient's floor/unit and/or counseling patient: Review of Systems Review of Systems: All systems reviewed & are unremarkable except as noted in HPI and below Exam Const: General: comfortable and no acute distress Orientation/consciousness: patient oriented x3 Resp: Effort & Inspection: normal respiratory effort
[2023-08-14 12:46] VITALS: BP 125/54; PULSE 70
[2023-08-14 18:30] VITALS: BP 117/77; PULSE 71; RESP 18; TEMP 36.7; O2SAT 98
[2023-08-15 08:33] VITALS: BP 141/82; PULSE 61; RESP 18; TEMP 36.8; O2SAT 99
== END 2023-08-14 18:51 | disposition home or self-care (01) | DRG 560 ==
LOC: ANHOBOP 13:32 → ANHLDR 13:32 → ANHOB2 08-11 06:33
PROVIDERS: Admitting Provider Obstetrics & Gynecology; PCP Internal Medicine; Visit Provider Obstetrics & Gynecology
DX: O13.4 Gestational [pregnancy-induced] hypertension without significant proteinuria, complicating childbirth (principal); O74.5 Spinal and epidural anesthesia-induced headache during labor and delivery; O21.0 Mild hyperemesis gravidarum; R74.01 Elevation of levels of liver transaminase levels; Z3A.37 37 weeks gestation of pregnancy; Z37.0 Single live birth; Z96.641 Presence of right artificial hip joint
CPT/HCPCS: 36415; 80053; 81003; 82570; 84156; 84550; 85014; 85018; 85025; 86592; 86703; 86850; 86900; 86901; 88307; A9270; G0432; J0834; J2371; J2405; J2590; J2765; J2795; J3010; J3475; J7030; J7120

== ENCOUNTER 2023-08-16 13:20 | Observation (INO) | payer OTHER, SELFPAY ==
[2023-08-16] VITALS (63 sets, daily range): BP systolic 109–161; BP diastolic 46–121; PULSE 51–110; RESP 16; TEMP 36.8; O2SAT 86–100
--- NOTE | ~2023-08-16 | MR_ITS ---
MR cervical spine wo/w con Ordering provider: Mark Mejia MD History: 23 years Female with . intractable headache s/p epidural . Comparison: None. Technique: MRI cervical spine without contrast. IV contrast was given. FINDINGS: CERVICAL SPINAL CORD/CRANIAL CERVICAL JUNCTION: Normal in signal and caliber. Tonsillar ectopia is no robinson of about 7.5 mm. CERVICAL VERTEBRAL BODIES: Normal height and alignment. Normal marrow signal. DISK SPACES: Normal. C2-C3: No stenosis. C3-C4: No stenosis. C4-C5: No stenosis. C5-C6: No stenosis. C6-C7: No stenosis. C7-T1: No stenosis. VISUALIZED PARASPINOUS SOFT TISSUES: Normal. Enhancement of the dura is noted. IMPRESSION: 1. tonsillar ectopia. 2. And 3. Assessment of the dura which is suggestive of intracranial hypotension. Reviewed, dictated and finalized at location A.
--- NOTE | ~2023-08-16 | MR_ITS ---
MR brain IAC wo/w con Ordering provider: Mark Mejia MD History: 23 years Female with . intractable headache s/p epidural . Comparison: CT head performed yesterday. Technique: MRI brain was performed without contrast. FINDINGS: BONES: Normal. CRANIOCERVICAL JUNCTION: Tonsillar ectopia is noted measuring about 1 cm suggestive of Chiari I malfo rmation.. Clinical correlation advised. Sagging of the brain is noted with obliteration of the space between the pituitary gland and midbrain . Narrowing of the prepontine cistern is also noted PITUITARY: Slightly enlarged which may be normal for the age of the patient. Clinical correlation adv ised. Measuring 1 x 1 cm. MAJOR INTRACRANIAL VESSELS: Normal flow void. OPTIC NERVES AND CRANIAL NERVES VII AND VIII COMPLEXES: Grossly normal. BRAIN PARENCHYMA AND CSF SPACES: Widening of the subdural spaces is seen suggestive of bilateral subd ural fluid collection. Acute Blood cannot be excluded with bright signal seen in the area on the FLAI R weighted images. No visible white matter disease. Postcontrast enhancement is seen in the due to T he brainstem and cerebellum are normal. No acute or chronic intracranial hemorrhage. No extra axial f luid collections. Diffusion weighted and ADC mapping images reveal no recent ischemia. No midline neil ft or mass effect. PARANASAL SINUSES: Focal hyperintense signal areas seen in the left nasal cavity. Clinical evaluation advised. MASTOIDS: Normal SUPERFICIAL/SURROUNDING SOFT TISSUES: Normal. IMPRESSION: 1. 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 Possibility of blood in the subdural collections cannot be excluded. CT evaluation may be advised. MR brain IAC wo/w con Ordering provider: Mark Mejia MD History: . intractable headache s/p epidural . Comparison: None. Technique: MRI brain and internal auditory canals with and without contrast with thin slice coronal a nd sagittal images through the internal auditory canals was performed per protocol. FINDINGS: IACs: --MASTOIDS: Normal. --EXTERNAL AUDITORY CANALS AND MIDDLE EARS: Normal. --COCHLEA AND SEMICIRCULAR CANALS: Normal bilaterally. --EUSTACHIAN TUBES/FOSSAE OF ROSENMUELLER: Normal. --ABNORMAL ENHANCEMENT: None. IMPRESSION: 1. No definite abnormality in both mastoid bones and bilateral IAC. Reviewed, dictated and finalized at location A. IMPRESSION: 1. Tonsillar ectopia with sagging of the brain and postcontrast enhancement in the dura in addition of bilateral subdural collections suggestive of intracran ial hypotension. Possibility of blood in the subdural collections cannot be exc luded. CT evaluation may be advised. MR brain IAC wo/w con Ordering provider: Mark Mejia MD History: . intractable headache s/p epidural . Comparison: None. Technique: MRI brain and internal auditory canals with and without contrast wit h thin slice coronal and sagittal images through the internal auditory canals w as performed per protocol. FINDINGS: IACs: --MASTOIDS: Normal. --EXTERNAL AUDITORY CANALS AND MIDDLE EARS: Normal. --COCHLEA AND SEMICIRCULAR CANALS: Normal bilaterally. --EUSTACHIAN TUBES/FOSSAE OF ROSENMUELLER: Normal. --ABNORMAL ENHANCEMENT: None.
--- NOTE | ~2023-08-16 | MR_ITS ---
Procedure: MR thoracic spine wo/w con Ordering provider: Mark Mejia MD History: . intractable headache s/p epidural . Comparison: None. Technique: MRI thoracic spine with and without contrast. FINDINGS: SPINAL CORD: Normal. Hyperintense signal is seen anterior to the thecal sac which is suggestive of blood components extend ing to the lower thoracic area. Dural enhancement seen on the postcontrast images. VERTEBRAL BODIES: Normal height and alignment. No compression fracture. Normal marrow signal. Hemangi shonda seen in T9. DISK SPACES: Normal. STENOSIS: None. PARASPINOUS SOFT TISSUES: Normal. IMPRESSION: No compression fracture or stenosis of the thoracic spine. Hyperintense signal on all sequences seen anteriorly in the thecal sac in the thoracolumbar area sugg estive of blood. Postcontrast enhancement is seen in the neural covering. Reviewed, dictated and finalized at location A. IMPRESSION: No compression fracture or stenosis of the thoracic spine. Hyperintense signal on all sequences seen anteriorly in the thecal sac in the t horacolumbar area suggestive of blood. Postcontrast enhancement is seen in the neural covering.
--- NOTE | ~2023-08-16 | CT_ITS ---
CT brain wo con Ordering provider: Mark Mejia MD History: 23 years Female with . subdural collections . Comparison: None. Technique: CT of the head without contrast. Radiation reduction technique utilized. FINDINGS: BRAIN PARENCHYMA AND CSF SPACES: Small frontal area subdural fluid collection with no definite blood seen. Slight tonsillar ectopia is noted in the sagittal images. Sagging of the brain is also noted wh ich is suggestive of intracranial hypotension. Clinical correlation advised. No definite intracranial hemorrhage seen. No midline shift, mass effect or hemorrhage. The brain parenchyma and CSF spaces a re otherwise normal. VISUALIZED PARANASAL SINUSES: Well aerated. MASTOIDS: Well aerated. BONES: The bones appear intact. SOFT TISSUES: Visualized nasopharynx is normal. Superficial soft tissues are normal. IMPRESSION: Minimal subdural collection is most likely CSF. No bleeding seen. Highly suggestive of intracranial hypotension with sagging of the brain and tonsillar ectopia. Reviewed, dictated and finalized at location A. IMPRESSION: Minimal subdural collection is most likely CSF. No bleeding seen. Highly suggestive of intracranial hypotension with sagging of the brain and ton sillar ectopia.
--- NOTE | ~2023-08-16 | MR_ITS ---
Procedure: MR lumbar spine wo/w con Ordering provider: Mark Mejia MD History: 23 years Female with . intractable headache s/p epidural . Comparison: None. Technique: MRI lumbar spine with and without contrast. FINDINGS: CONUS MEDULLARIS: Normal in position and appearance. The conus ends at the level of T12-L1. LUMBAR VERTEBRAL BODIES: No compression fracture or subluxation. Normal marrow signal. DISK SPACES: Normal. T12-L1: No stenosis. L1-L2: No stenosis. L2-L3: No stenosis. L3-L4: No stenosis. L4-L5: No stenosis. L5-S1: No stenosis. PARASPINOUS SOFT TISSUES: Subcutaneous edema is seen in the upper lumbar area IMPRESSION: 1. No definite abnormality. No definite abnormal enhancement seen. 2. Edema in the subcutaneous tissues extending in the lower thoracic and upper lumbar area communica tion with the spinal canal cannot be demonstrated. Reviewed, dictated and finalized at location A. IMPRESSION: 1. No definite abnormality. No definite abnormal enhancement seen. 2. Edema in the subcutaneous tissues extending in the lower thoracic and upper lumbar area communication with the spinal canal cannot be demonstrated.
--- NOTE | 2023-08-16 13:40 | PC.NURSE ---
Dr. Mejia informed of pt's arrival with report of intolerable headache she rates a 10 when sitting or standing and goes down to a 3 while laying flat. Reviewed pt's hx of hypertension in with elevated liver enzymes on 08/09/23 and pt received an epidural blood patch, and other treatments that didn't resolve her headache before discharge.
--- NOTE | 2023-08-16 13:45 | PC.NURSE ---
Dr. Ritter informed of consult for possible spinal headache.
[2023-08-16] MEDS: ACETAMINOPHEN/BUTALBITAL/CAFFEINE 325-50-40 MG TABLET (FIORICET) 1 TAB PO ×2 (14:13→22:35)
[2023-08-16 14:46] LABS: Basophils Percent Auto 0.4 % (0.2-1.2); Eosinophils Absolute Auto 0.2 K/mm3 (0-0.3); Hematocrit 39.7 % (37.0-47.0); Hemoglobin 12.7 g/dL (12.0-15.0); Immature Granulocyte Absolute 0.05 K/mm3 (0.00-0.031); Immature Granulocyte Percent A 0.5 % (0-0.5); Lymphocytes Absolute Auto 2.31 K/mm3 (0.9-3.2); Lymphocytes Percent Auto 21.1 % (18.3-44.2); Mean Corpuscular Hemoglobin 28.8 pg (26-34); Mean Platelet Volume 9.4 fl (7.4-10.4); Monocytes Absolute Auto 0.7 K/mm3 (0.1-0.6); Monocytes Percent Auto 6.3 % (2.6-8.5); Neutrophils Absolute Auto 7.7 K/mm3 (1.3-6.7); Neutrophils Percent Auto 69.7 % (45.5-73.1); Platelet Count Result 210 k/mm3 (150-375); Red Blood Count 4.41 M/mm3 (4.2-5.4); Red Cell Distribution Width 13.4 % (11.5-14.5)
[2023-08-16 15:01] LABS: Alanine Aminotransferase 55 U/L (6-35); Albumin Level 3.8 g/dL (3.5-5.1); Alkaline Phosphatase 120 U/L (38-126); Anion Gap 5 mmol/L (4-12); Aspartate Amino Transferase 24 U/L (14-36); Bilirubin,Total 0.5 mg/dL (0.2-1.3); Blood Urea Nitrogen 9 mg/dL (7-17); Calcium 8.8 mg/dL (8.4-10.2); Carbon Dioxide 23 mmol/L (22-30); Chloride 112 mmol/L (98-107); Estimated Glomerular Filt Rate > 60; Glucose 83 mg/dL (65-110); Potassium 3.3 mmol/L (3.4-5.0); Sodium 140 mmol/L (137-145)
--- NOTE | 2023-08-16 15:20 | PC.NURSE ---
Pt turned over to Evy Long RN.
--- NOTE | 2023-08-16 17:15 | PC.NURSE ---
Dr. Albright to room to see patient. Dr. Albright recommends evaluation medically prior to doing a blood patch. Pt had blood patch previous admission which did not give compete relief and per Dr. Albright epidural procedure did not give indication of dural puncture. Dr. Mejia given update per phone and she will consult neurologist the hospitalist will also be consulted.
--- NOTE | 2023-08-16 17:50 | PC.NURSE ---
1530 RN received report from Jorge Blanton RN 1540 Anesthesia (Jorge Archuleta & Jesica Daly) in patient room with this RN to discuss with patient her symptoms and options she may have for treatment regarding her headache. Per patient, she would like to talk with her and will call out to the RN when she has decided. 1555 Anesthesia left the room with RN. 1620 Patient advised RN that she would like to have the blood patch done. [address] Mejia to advise her of patient labs and that the patient is wanting to go ahead with the blood patch, Dr. Mejia ok with that plan. No further orders, patient is ok to hydrate orally and no IV needed at this time. 1630 Dr. Albright with Anesthesia now in patient room to discuss patient's symptoms and the blood patch. 1635 Dr. Albright out of patient room and now having discussion with Jose Angel Bhakta, OB Casserole Preparer. 1715 Jose Angel Bhakta, OB Casserole Preparer has updated Dr. Mejia and there will be a Neuro and hospitalist consult done. 1750 Dr. Mejia here to see patient.
--- NOTE | 2023-08-16 18:37 | PM.IMHP ---
H&P: HPI History of Present Illness Date/Time: 08/16/23 18:37 Chief Complaint: intractable headache Narrative: Patient is a 23 year old s/p on 08/10 who presents with intractable headache. Headache began while in recovery after an uncomplicated vaginal delivery. During her initial stay, a blood patch was attempted with temporary relief however headache returned while inpatient. A sphenopalatine ganglion block was also attempted by anesthesia without relief. She received multiple rounds of IV fluids, as well as tylenol, ibuprofen, fioricet, caffeine, without relief. She says the headache is 10/10 while sitting up or standing, and 1/10 while laying down. She denies vision changes, chest pain, dyspnea, RUQ pain or epigastric pain. She denies motor or sensory symptoms. Her course has been otherwise uncomplicated. Her was c/b gestational hypertension however she has been overall normotensive since delivery. Labs were normal on admission today. Review of Systems Review of Systems: All systems reviewed & are unremarkable except as noted in HPI and below PMFSH Past Medical History Medical History Anxiety Fatigue Fever of unknown origin (FUO) Hospital discharge follow-up IUP (intrauterine ), incidental Rash and nonspecific skin eruption Screening for lipoid disorders Screening for metabolic disorder Screening for STD (sexually transmitted disease) Sore throat Urinary frequency Urinary tract infection symptoms Vaccination not carried out because of acute illness Vaginal itching Yeast infection Surgical History Surgical History History of hip replacement Family History Family History Grandparent Diabetes mellitus Hypertension Social History Social History Social History: Caffeine- rarely Smoking status: Never smoker Second hand tobacco smoke exposure: No Alcohol intake: never Substance use: never Substance use type: does not use Do You Feel Safe in your Home?: Yes Lack of Transportation: No Lack of Food: Never True Current Housing: I Have Housing Concerned About Future Housing: No Difficulty Paying Gas/Electric Bills: No Difficulty Paying for Meds: No Currently Unemployed: No Education: High School Diploma/GED Difficulty w/ Childcare or Family Care: No Living arrangements: with family Spiritual care concerns: No Meds Home Medications and Allergies Home Medications Medication Instructions Recorded Confirmed Type vit no.95-ferrous 1 tablet PO DAILY 06/26/23 08/16/23 History fumarate 28 mg-folic acid 800 mcg tablet () ibuprofen 600 mg tablet 600 mg PO Q6H PRN Cramping #30 tabs 08/13/23 08/16/23 Rx wkjpiud-joagsasybrfil-kpnwgrdp 250 1 tablet PO Q6H PRN Headache 08/16/23 08/16/23 History mg-250 mg-65 mg tablet (Excedrin Migraine) [id number]-[id number]-wwuopfan 742 1 packet PO Q6H 08/16/23 08/16/23 History mg-222 mg-36 mg oral packet Allergies Allergy/AdvReac Type Severity Reaction Status Date / Time amoxicillin [From Augmentin] AdvReac Mild Rash Verified 01/08/23 10:47 clavulanic acid AdvReac Mild Rash Verified 01/08/23 10:47 [From Augmentin] Vital Signs Vital Signs - 24 hr 08/16/23 13:35 08/16/23 13:46 08/16/23 14:01 Pulse Rate 64 61 58 L Blood Pressure 145/74 H 135/77 125/59 L Blood Pressure [Right Arm] 08/16/23 14:16 08/16/23 14:31 08/16/23 14:46 Pulse Rate 80 51 L 62 Blood Pressure 139/77 145/66 H 144/74 H Blood Pressure [Right Arm] 08/16/23 15:01 08/16/23 15:16 08/16/23 15:30 Pulse Rate 69 66 55 L Blood Pressure 139/56 L 109/53 L 134/69 Blood Pressure [Right Arm] 08/16/23 15:46 08/16/23 16:01 08/16/23 16:16 Pulse Rate 65 53 L Blood Pressure
[2023-08-16] MEDS: LACTATED RINGERS 1,000 ML 75 ML IV CONT (19:32)
[2023-08-16] MEDS: MAGNESIUM SULF 4 GM/WATER100ML 4 GM/100 ML BAG IVPB (19:32)
[2023-08-16] MEDS: MAGNESIUM SULF 20GM/WATER500ML 500 ML 50 MG IV CONT (20:02)
--- NOTE | 2023-08-16 21:46 | PM.IMCN ---
Assessment and Plan Assessment and plan (1) Intractable headache: Code(s): R51.9 - Headache, unspecified Status: Acute (2) Spinal headache complicating labor and delivery: Code(s): O74.5 - Spinal and epidural anesthesia-induced headache during labor and delivery Status: Acute Plan Intractable headaches versus migraine headache versus spinal headaches -Vitals and monitoring: - neurochecks - Continuous monitoring Blood pressure management: If needed Neurology consult Imaging: -MRI brain without contrast : In a.m. -PRN head CT without contrast for neurologic decline I will try Lidoderm patches around the neck and upper back May try some muscle relaxant but will wait for Neurology input Etiology of headache still unclear if will continue the workup process Spoke to patient at length answered all question showed her all the images of different reasons of headaches Hypokalemia will replace potassium orally Will order some inflammatory markers, sed rate. Will follow patient p.r.n. currently plan to continue pain medications and Zofran for nausea. HPI Date of Consult Consult date: 08/16/23 Requesting Physician: Mark Mejia MD Primary Care Provider: Dylon Zepeda, Consult Narrative Narrative: Stephenie Hernandez is a 23 year old female: Complains of severe headaches. Patient recently delivered a baby on was given epidural and and liberal induced since then patient started having some severe headache and she woke up and stood up on her feet. Patient had a blood patch done after the epidural but patient's headache has continued. Patient was admitted for further workup and evaluation because of these acute headaches which she is getting while standing up. Patient defines this headache as throbbing mostly in her church region also at the neck region behind L[place] and also frontal headaches primarily on the forehead no blurry vision no previous history of migraine headaches no history of any viral illness no history of any head injury no history of any hypertension never had suffered from the scab headaches before. Patient denied any nausea vomiting diarrhea abdominal pain dizziness palpitation. No numbness in her finger or lower extremity. Patient's pain is about 2/10 when she is lying in bed flat but the moment she gets up pain is 10/10. No allergies to any foods does have history of anxiety which according to her she breaks out into a rash. Review of Systems Review of Systems: All systems reviewed & are unremarkable except as noted in HPI and below PMFSH Past Medical History Medical History Anxiety Fatigue Fever of unknown origin (FUO) Hospital discharge follow-up IUP (intrauterine ), incidental Rash and nonspecific skin eruption Screening for lipoid disorders Screening for metabolic disorder Screening for STD (sexually transmitted disease) Sore throat Urinary frequency Urinary tract infection symptoms Vaccination not carried out because of acute illness Vaginal itching Yeast infection Surgical History Surgical History History of hip replacement Family History Family History Grandparent Diabetes mellitus Hypertension Social History Social History Social History: Caffeine- rarely Smoking status: Never smoker Second hand tobacco smoke exposure: No Alcohol intake: never Substance use: never Substance use type: does not use Do You Feel Safe in your Home?: Yes Lack of Transportation: No Lack of Food: Never True Current Housing: I Have Housing Concerned About Future Housing: No Difficulty Paying Gas/Electric Bills: No Difficulty Paying for Meds: No Currently Unemployed: No Education: High School Diploma/GED Difficulty w/ Childcare
[2023-08-16] MEDS: KETOROLAC 30 MG/ML VIAL (*BKC) IV PUSH (22:44)
[2023-08-16] MEDS: LIDOCAINE 5% PATCH 1 PATCH TRANSDERM (23:31)
[2023-08-17] VITALS (96 sets, daily range): BP systolic 103–136; BP diastolic 37–102; PULSE 57–148; O2SAT 92–100
[2023-08-17] MEDS: ACETAMINOPHEN/BUTALBITAL/CAFFEINE 325-50-40 MG TABLET (FIORICET) 1 TAB PO ×5 (04:00→23:21)
[2023-08-17] MEDS: MAGNESIUM SULF 20GM/WATER500ML 500 ML 50 MG IV CONT (06:06)
[2023-08-17] MEDS: KETOROLAC 30 MG/ML VIAL (*BKC) (06:50)
--- NOTE | 2023-08-17 07:26 | PM.OBPNVD ---
OB - PN: Subj Subjective Date/time seen: 08/17/23 07:26 Interval history: Doing ok this morning Toradol improved headache while laying down last night, still 10/10 and pounding when standing or sitting up No vision changes or new neuro symptoms Tolerating MgSO4 well Plan for MRI this AM, as well as neurology consult, appreciate recs Continue pain control with toradol, fioricet, lidocaine patches prn OB - PN: Obj Data Labs 08/16/23 14:16 08/16/23 14:16 Labs: Laboratory Results - last 24 hr 08/16/23 14:16 WBC 11.0 H RBC 4.41 Hgb 12.7 Hct 39.7 MCV 90.0 MCH 28.8 MCHC 32.0 RDW 13.4 Plt Count 210 MPV 9.4 Immature Gran % (Auto) 0.5 Neut % (Auto) 69.7 Lymph % (Auto) 21.1 [place] % (Auto) 6.3 Eos % (Auto) 2.0 Baso % (Auto) 0.4 Lymph # (Auto) 2.31 [place] # (Auto) 0.7 H Eos # (Auto) 0.2 Baso # (Auto) 0.0 Abs Immat Gran (auto) 0.05 H Absolute Neuts (auto) 7.7 H Absolute Nucleated RBC 0.000 Nucleated RBC % 0.0 Sodium 140 Potassium 3.3 L Chloride 112 H Carbon Dioxide 23 Anion Gap 5 BUN 9 Creatinine 0.60 L Estim Creat Clear Calc Not Reportable Estimated GFR > 60 Glucose 83 Uric Acid 3.0 Calcium 8.8 Total Bilirubin 0.5 AST 24 ALT 55 H Alkaline Phosphatase 120 Total Protein 7.0 Albumin 3.8 OB - PN A/P Assessment and Plan (1) Gestational hypertension: Code(s): O13.9 - Gestational [-induced] hypertension without significant proteinuria, unspecified trimester Status: Acute Assessment and Plan: - asymptomatic aside from headache, no improvement with MGSO4 infusion overnight - BP wnl - continue to monitor closely (2) Intractable headache: Code(s): R51.9 - Headache, unspecified Status: Acute Assessment and Plan: - s/p 08/10, headache began shortly after delivery - during stay, the following interventions were performed without lasting improvement: blood patch, sphenopalatine ganglion block, tylenol, ibuprofen, fioricet, MgSO4, and IV fluids - headache 03/16 while laying flat, 10/10 when sitting or standing - BP 130s-140s/80s-90s overnight - labs wnl - some relief while laying down with toradol, also tried lidocaine patches without relief - tolerating MgSO4 well, no improvement in headache since initiation; will d/c pending MRI results - evaluated by anesthesia for possible spinal headache, hesitant to redo blood patch at this time - discussed that symptoms fit spinal headache given positional nature, however will work to rule out other etiologies - neurology and hospitalist consults ordered, appreciate input; discussed with neurology, MRI w/wo contrast of brain and spine ordered to r/o mass or intracranial hypotension - continue to attempt pain control with PO meds and IV toradol Plan day: 3 Plan: routine care and discharge home Comments: - ok for no care bed if baby continues to need bili lights Time Spent With Patient Time: Total time spent is greater than 50% in coordination of care (as documented) at patient's floor/unit and/or counseling patient: Review of Systems Review of Systems: All systems reviewed & are unremarkable except as noted in HPI and below Exam Const: General: comfortable and no acute distress Orientation/consciousness: patient oriented x3 Resp: Effort & Inspection: normal respiratory effort
[2023-08-17 07:55] LABS: CRP 6.4 mg/dL (<1.0)
[2023-08-17] MEDS: KETOROLAC 15 MG/ML VIAL (*BKC) IV PUSH ×2 (08:03→14:34)
[2023-08-17] MEDS: LACTATED RINGERS 1,000 ML 75 ML IV CONT (08:53)
--- NOTE | 2023-08-17 14:21 | WPDNEURCNPN ---
Assessment and Plan Assessment and plan (1) Intractable headache: Code(s): R51.9 - Headache, unspecified Status: Acute (2) Spinal headache complicating labor and delivery: Code(s): O74.5 - Spinal and epidural anesthesia-induced headache during labor and delivery Status: Acute Plan Severe post spinal tap headache with orthostatic symptomatology she is going to have the Complete MRI of the brain and spinal axis if those studies are negative she will benefit from the repeat spinal tap. Consult date: 08/17/23 HPI: Stephenie Hernandez is a 23 year old female 1 para 1 status post on 08/10 presented with intractable headache which started in recovery after uncomplicated vaginal delivery. During her initial stay a blood patch was attempted with temporary relief however headache returned while inpatient. Her sphenopalatine ganglia on block was also attempted by Anesthesia without relief subsequently she received multiple rounds of IV fluids including Tylenol ibuprofen Fioricet caffeine all without relief. Her headache intensity is 10/10 while sitting up or standing goes down to only 1/10 while laying down she has no visual changes, no difficulties in breathing, no chest pain or epigastric pain and also she denies any motor or sensory symptoms her course has otherwise been uncomplicated she did have gestational hypertension but has been normotensive since delivery all her labs are normal at the time of admission. In the past she carries the diagnosis of no specific neurological problem she has never alcohol intake, never smoker, never substance user, she is allergic to amoxicillin and Augmentin. Her vital signs are normal including the blood pressure general physical exam is normal and neurological examination has been normal CBC without any abnormalities except WBC 11.0 hepatic enzymes are with ALT 55 PMFSH Past Medical History Medical History Anxiety Fatigue Fever of unknown origin (FUO) Hospital discharge follow-up IUP (intrauterine ), incidental Rash and nonspecific skin eruption Screening for lipoid disorders Screening for metabolic disorder Screening for STD (sexually transmitted disease) Sore throat Urinary frequency Urinary tract infection symptoms Vaccination not carried out because of acute illness Vaginal itching Yeast infection Surgical History Surgical History History of hip replacement Family History Family History Grandparent Diabetes mellitus Hypertension Social History Social History Social History: Caffeine- rarely Smoking status: Never smoker Second hand tobacco smoke exposure: No Alcohol intake: never Substance use: never Substance use type: does not use Do You Feel Safe in your Home?: Yes Lack of Transportation: No Lack of Food: Never True Current Housing: I Have Housing Concerned About Future Housing: No Difficulty Paying Gas/Electric Bills: No Difficulty Paying for Meds: No Currently Unemployed: No Education: High School Diploma/GED Difficulty w/ Childcare or Family Care: No Living arrangements: with family Spiritual care concerns: No Meds Home Medications and Allergies Home Medications Medication Instructions Recorded Confirmed Type vit no.95-ferrous 1 tablet PO DAILY 06/26/23 08/16/23 History fumarate 28 mg-folic acid 800 mcg tablet () ibuprofen 600 mg tablet 600 mg PO Q6H PRN Cramping #30 tabs 08/13/23 08/16/23 Rx [id number] 250 1 tablet PO Q6H PRN Headache 08/16/23 08/16/23 History mg-250 mg-65 mg tablet (Excedrin Migraine) [id number] 742 1 packet PO Q6H 08/16/23 08/16/23 History mg-222 mg-36 mg oral packet
--- NOTE | 2023-08-17 15:28 | PM.IMPN ---
Progress Note: A&P Assessment and Plan (1) Intractable headache: Code(s): R51.9 - Headache, unspecified Status: Acute (2) Spinal headache complicating labor and delivery: Code(s): O74.5 - Spinal and epidural anesthesia-induced headache during labor and delivery Status: Acute Plan Intractable headaches much improved. Neurology consult reviewed and appreciated. Will continue to monitor and follow the recommendations from the client support consultant. Advised patient early ambulation oral hydration. Awaiting MRI results head neck lumbar Hypokalemia 3.3 possibly due to poor intake CRP 6.4 nonspecific COVID-19 negative Subjective Date/time seen: 08/17/23 15:28 Interval history: Patient seen today she is feeling a lot better sitting up on the bed. States her headache got better after the MRI she was laying in a machine for about 2 hours. No nausea no vomiting still rates the headache is about 4/10 no blurry vision no arm leg weakness noted. Speech Review of Systems Review of Systems: All systems reviewed & are unremarkable except as noted in HPI and below Exam Narrative: GENERAL: Well appearing, no acute distress. HEAD: Normocephalic, atraumatic. NECK: Supple. No adenopathy, no masses. RESPIRATORY: respirations nonlabored. , no rales, wheezing. CARDIOVASCULAR: Regular rate and rhythm without murmurs, . Peripheral pulses 2+ and equal bilaterally. ABDOMINAL: Soft, nontender, nondistended, no hepatosplenomegaly. Normoactive BS. MUSCULOSKELETAL: no Epigastric and no hypochondrial tenderness SKIN: Warm, dry, NEURO: A&O X3. Moves all extremities Objective Data Vital Signs Vital Signs: Vital Signs - 24 hr 08/16/23 15:30 08/16/23 15:46 08/16/23 16:01 Temperature Pulse Rate 55 L 65 Respiratory Rate Blood Pressure 134/69 136/92 H 161/121 H Pulse Oximetry 08/16/23 16:16 08/16/23 19:33 08/16/23 19:36 Temperature Pulse Rate 53 L 67 61 Respiratory Rate Blood Pressure 146/71 H 140/74 139/61 Pulse Oximetry 100 08/16/23 19:38 08/16/23 19:41 08/16/23 19:43 Temperature Pulse Rate 65 Respiratory Rate Blood Pressure 134/67 Pulse Oximetry 100 100 08/16/23 19:46 08/16/23 19:48 08/16/23 19:50 Temperature Pulse Rate 87 75 Respiratory Rate Blood Pressure 128/95 H 136/61 Pulse Oximetry 100 08/16/23 19:53 08/16/23 19:56 08/16/23 19:58 Temperature Pulse Rate 84 Respiratory Rate Blood Pressure 131/53 L Pulse Oximetry 100 100 08/16/23 20:00 08/16/23 20:03 08/16/23 20:06 Temperature Pulse Rate 94 90 Respiratory Rate Blood Pressure 126/56 L 132/49 L Pulse Oximetry 100 08/16/23 20:08 08/16/23 20:13 08/16/23 20:18 Temperature Pulse Rate Respiratory Rate Blood Pressure Pulse Oximetry 100 98 100 08/16/23 20:23 08/16/23 20:28 08/16/23 20:33 Temperature Pulse Rate Respiratory Rate Blood Pressure Pulse Oximetry 100 100 100 08/16/23 20:38 08/16/23 20:43 08/16/23 20:48 Temperature Pulse Rate Respiratory Rate Blood Pressure Pulse Oximetry 100 100 100 08/16/23 21:01 08/16/23 21:26 08/16/23 21:31 Temperature Pulse Rate 89 Respiratory Rate Blood Pressure 124/53 L Pulse Oximetry 100 100 08/16/23 21:36 08/16/23 21:41 08/16/23 21:46 Temperature Pulse Rate Respiratory Rate Blood Pressure Pulse Oximetry 100 100 100 08/16/23 21:51 08/16/23 21:56 08/16/23 22:01 Temperature Pulse Rate Respiratory Rate Blood Pressure 127/46 L Pulse Oximetry 100 100 100 08/16/23 22:05 08/16/23 22:10 08/16/23 22:15 Temperature Pulse Rate Respiratory Rate Blood Pressure Pulse Oximetry 86 L 100 100 08/16/23 22:20 08/16/23 22:25 08/16/23 22:30 Temperature Pulse Rate Respiratory Rate Blood Pressure Pulse Oximetry 100 100 100 08/16/23 22:35 08/16/23 22:40 08/16/23 22:45 Temperature
--- NOTE | 2023-08-17 20:17 | PC.NURSE ---
Called Dr. Mejia, update on CT scan report. Orders received to discontinue IV access, and administer reglan PO 10 mg and benadryl PO 25 mg at bedtime.
[2023-08-17] MEDS: METOCLOPRAMIDE HCL 10 MG TABLET PO (23:21)
[2023-08-17] MEDS: diphenhydrAMINE HCl CAP 25 MG CAPSULE PO (23:21)
--- NOTE | 2023-08-18 03:24 | OBPPTRN ---
Patient to room #115. Support person present. Oriented to unit, room, and information board. Patient verbalizes understanding.
--- NOTE | 2023-08-18 06:07 | PC.NURSE ---
Report given to Annetta Reyes RN.
[2023-08-18] MEDS: IBUPROFEN 600 MG TABLET PO (08:26)
[2023-08-18 09:12] VITALS: BP 141/84; PULSE 78
[2023-08-18] MEDS: ACETAMINOPHEN/BUTALBITAL/CAFFEINE 325-50-40 MG TABLET (FIORICET) 1 TAB PO (12:15)
--- NOTE | 2023-08-18 12:40 | PM.DS ---
DS: Admitting Diagnosis Discharge Date 08/18/23 Admitting Diagnosis intractable headache DS: Discharge Diagnosis Discharge Diagnosis (1) Intractable headache: Code(s): R51.9 - Headache, unspecified Status: Acute DS: Summary Hospital Course Hospital Course: Patient presented to the hospital s/p on 08/10 for an intractable headache. Following her delivery, she reports a positional headache that was 10/10 with sitting up and standing, an 1/10 while laying down. She underwent blood patch at that time without much improvement. She was also treated with sphenopalatine ganglion block per anesthesia, IV fluids, ibuprofen, fioricet, and tylenol. She was readmitted on 08/15 for worsening headache with standing. Labwork was unremarkable. Blood pressure was overall normotensive, with rare mild range pressures. Due to continued headache and hx of gestational hypertension, MgSO4 was administered for seizure prophylaxis in case of preeclampsia while workup was completed. Neurology and IM consults were placed. MRI brain/spine demonstrated intracranial hypotension and an area in the lower thoracic/upper lumbar area c/w prior blood patch. She reported improvement in her headache after laying flat for the MRI. CT scan was also performed at radiology's recommendation to evaluate for possible blood collections, but was negative. On HD#2, the patient was feeling improved and she was ready for discharge home. Time Spent with Patient Time attestation: Total time spent providing and/or coordinating discharge services: Exam Const: General: cooperative, comfortable and no acute distress Orientation/consciousness: oriented to person, oriented to place and oriented to time Limitations: no limitations HENMT: Mouth: Yes Normal oral and palatal mucosa present Eyes: General: appearance normal, both eyes and all related structures Resp: Effort & Inspection: normal respiratory effort and able to speak in complete sentences Cardio: Rate: regular rate Rhythm: regular rhythm Skin: General skin exam: normal color and no rashes or lesions noted Neuro: General: patient oriented x3, gait normal, moves all extremities and CN's II-XI intact bilaterally Extrem: General: normal to inspection Psych: Appearance: grossly normal Mental Status: mental status grossly normal Discharge Plan Discharge Attending physician on discharge: Mark Mejia Consulting providers: Narayan Ritter; Sachin Tan; Tana Montoya Discharging Clinician: Mark Mejia Anticipated Discharge Date/Time: 08/18/23 12:33 Patient Disposition: Home, Self-Care Activity: may shower and pelvic rest Diet: as tolerated Patient Instructions: Antibiotic Form Stand Alone Forms: General Discharge Information Follow-up/Referrals: Mark Mejia MD [Physician] - 4 Weeks Discharge Medications: New yhldqhvghk-rmdrlenctyjqr-nsvb 50-325-40 mg Tablet 1 tablet PO Q4H PRN (Reason: Pain Rated 4-6) Qty: 10 0RF Continued PNV cmb#95-ferrous fumarate-FA [] 28 mg iron- 800 mcg Tablet 1 tablet PO DAILY ibuprofen 600 mg Tablet 600 mg PO Q6H PRN (Reason: Cramping) Qty: 30 0RF wycthvy-slhgfohhfuog-wquvwwwb 742-222-36 mg Packet 1 packet PO Q6H Discontinued Excedrin Migraine 250-250-65 mg Tablet 1 tablet PO Q6H PRN (Reason: Headache) Date of admission: 08/17/23 13:20 Primary Care Provider: Dylon Zepeda Admitting Provider: Mark Mejia Attending physician on admission: Mark Mejia Condition: Stable
--- NOTE | 2023-08-18 13:28 | PC.NURSE ---
Pt finished her shower and states she feels so much better. States she was able to stand up and only had pressure in the front of her head that she rated a 3. She would like to be discharged if possible. She would also like to talk with the systems development consultant about her breast pump.
--- NOTE | 2023-08-18 15:21 | PC.NURSE ---
[id number]: Introductions made. Consulted with patient to assess needs related to . Discussed with mother her?plans to feed?her and the?experience so far. Mother verbalized that she had mostly been pumping around the the clock and feeding with a bottle but would like to transition back to the breast. Mom was encourage to give baby about 5 mls from the bottle if she is showing signs of hunger and then transition her to the breast to complete her feeding. Mom was also encouraged to use the nipple shield if baby is unable to maintain latch and showing signs of frustration. Education given on how to use the nipple shield and how to start baby on the nipple shield and transition her back to the breast during a feed. Mom also verbalized that she wanted nurse to check the correct size and fit of her pump flange. Patient was assessed for correct placement, flange size, to pump for comfort and nipple stretching/stimulation for adequate milk production every 3 hours (8 times in 24 hours) 1-2 times at night. Mom was assessed to be a size 15mm and was using a size 21mm flange and RN recommended moving down a size to a 17mm flange for a better fit. Mother voiced understanding of the education shared along with mom/baby guide and the pump measurement, flange fit handout for additional resource information. Reported to the Primary RN.
--- NOTE | 2023-08-18 16:56 | WPDNEUROPN ---
Progress Note: A&P Assessment and Plan (1) Spinal headache complicating labor and delivery: Code(s): O74.5 - Spinal and epidural anesthesia-induced headache during labor and delivery Status: Acute Plan The patient has improved significantly since yesterday. When I spoke to the sub master as well as the nursing staff and suggested that she can be treated symptomatically. She. She should be encouraged to drink plenty fluids. and abdominal binder can be used if necessary. If the headache worse worse she can contact my office another glad to see he. The patient does not think she used to have any headache prior to this spinal procedure. Hence I expect her to continue to improve. Should there be any further concerns please do not hesitate to contact me. Subjective Date/time seen: 08/18/23 16:56 Interval history: the patient today is 23-year-old who had a delivery last and they immediately thereafter she developed postural headache. However she continued to be symptomatic. His she was seen by Dr. Morales yesterday and has had neurologic workup including MRI of the brain and neck which should show some cerebellar ectopia. The radiologist thought this could be indicate a low-pressure headache situation also. Since then the patient has improved significantly and she reports her headache being 3 on a scale of 10. She can get up and walk around. Exam Narrative: Fully conscious alert oriented to self place and person no aphasia or dysarthria. She appears to be in good spirits. Objective Data Vital Signs Vital Signs: Vital Signs - 24 hr 08/17/23 23:08 08/17/23 23:12 08/17/23 23:13 Pulse Rate 80 Blood Pressure 119/52 L Pulse Oximetry 99 100 Oxygen Delivery 08/18/23 09:12 08/18/23 03:15 08/17/23 23:12 Pulse Rate 78 80 Blood Pressure 141/84 H 119/52 L Pulse Oximetry 100 Oxygen Delivery Room Air Intake/Output Intake/Output: Intake & Output 08/15/23 08/16/23 08/17/23 08/18/23 23:59 23:59 23:59 23:59 Intake Total 2900 Output Total 2050 Balance 850 Meds/Results Radiology Results: ITS Impressions Brain MRI 08/17/23 15:30 IMPRESSION: 1. 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 Possibility of blood in the subdural collections cannot be excluded. CT evaluation may be advised. MR brain IAC wo/w con Ordering provider: Mark Mejia MD History: . intractable headache s/p epidural . Comparison: None. Technique: MRI brain and internal auditory canals with and without contrast with thin slice coronal and sagittal images through the internal auditory canals was performed per protocol. FINDINGS: IACs: --MASTOIDS: Normal. --EXTERNAL AUDITORY CANALS AND MIDDLE EARS: Normal. --COCHLEA AND SEMICIRCULAR CANALS: Normal bilaterally. --EUSTACHIAN TUBES/FOSSAE OF [place]ENMUELLER: Normal. --ABNORMAL ENHANCEMENT: None. IMPRESSION: 1. No definite abnormality in both mastoid bones and bilateral IAC. ADDENDUM: 08/17/23 [id number] There is result of the patient was notified to Dr. Mejia at 4:46 PM on August 17, 2023. Head CT 08/17/23 18:05 IMPRESSION: Minimal subdural collection is most likely CSF. No bleeding seen. Highly suggestive of intracranial hypotension with sagging of the brain and tonsillar ectopia. Cervical Spine MRI 08/17/23 23:50 IMPRESSION: 1. tonsillar ectopia. 2. And 3. Assessment of the dura which is suggestive of intracranial hypotension. Lumbar Spine MRI 08/18/23 00:02 IMPRESSION: 1. No definite abnormality. No definite abnormal enhancement seen. 2. Edema in the subcutaneous tissues extending in the lower thoracic and upper lumbar area communica
== END 2023-08-18 12:27 | disposition home or self-care (01) ==
LOC: ANHOBPP 08-18 12:40 → ANHOBOP 08-22 13:04 → ANHLDR 08-22 13:05 → ANHOBOP 08-22 13:06 → ANHLDR 08-22 13:06
PROVIDERS: Internal Medicine; Admitting Provider Obstetrics & Gynecology; PCP Internal Medicine; Visit Provider Obstetrics & Gynecology
DX: O89.4 Spinal and epidural anesthesia-induced headache during the puerperium (principal)
CPT/HCPCS: 36415; 70450; 70553; 72156; 72157; 72158; 80053; 84550; 85025; 86140; 96361; 96365; 96366; 96375; 96376; 99199; A9270; A9577; G0378; G0379; J1885; J3475; J7120